=== PATIENT | male | born 1940 | race Caucasian/White ===

== ENCOUNTER 2016-08-08 14:59 | Inpatient (IN) | payer MEDICARE ==
[~2016-08-08] VITALS: Ht 175.3 cm; Wt 115.0 kg
[2016-08-08 15:01] VITALS: BP 181/88; PULSE 103; RESP 18; TEMP 98.9; O2SAT 97
[2016-08-08 15:12] VITALS: BP 192/95; PULSE 81; RESP 16; TEMP 97
[2016-08-08] MEDS ORDERED: SODIUM CHLOR 0.9% 1000 ML INJ 1,000 ML IV SCH (15:27)
[2016-08-08] MEDS ORDERED: SODIUM CHLORIDE 0.9% FLUSH 5 ML FLUSH IV FLUSH PRN (15:30)
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
[2016-08-08] MEDS ORDERED: AMLO5TAB2 PO (15:35)
[2016-08-08] MEDS ORDERED: SERT-132 PO (15:35)
[2016-08-08] MEDS ORDERED: METO25TA3 PO (15:35)
[2016-08-08] MEDS ORDERED: LISI20TA3 PO (15:35)
[2016-08-08] MEDS ORDERED: ATOR40TA16 PO (15:35)
[2016-08-08] MEDS ORDERED: ALBUAER3 INH (15:35)
[2016-08-08] MEDS ORDERED: UMEC1AER INH (15:36)
[2016-08-08 15:55] LABS: AUTOMATED NEUTROPHIL # 10.6 TH/MM3 (1.8-7.7); BASOPHIL % 0.2 % (0.0-2.0); EOSINOPHIL % 0.2 % (0.0-4.0); HEMATOCRIT 44.1 % (39.0-51.0); HEMO FLAGS DIFF FINAL; LYMPH % 9.5 % (9.0-44.0); LYMPHOCYTE # 1.2 TH/MM3 (1.0-4.8); MEAN CORPUSCULAR HEMOGLOBIN 29.7 PG (27.0-34.0); MEAN CORPUSCULAR HGB CONC 35.4 % (32.0-36.0); MONO % 7.7 % (0.0-8.0); NEUT % 82.4 % (16.0-70.0); PLATELET COUNT 251 TH/MM3 (150-450); RED BLOOD COUNT 5.25 MIL/MM3 (4.50-5.90); RED CELL DISTRIBUTION WIDTH 13.2 % (11.6-17.2); WHITE BLOOD COUNT 12.8 TH/MM3 (4.0-11.0)
[2016-08-08 16:05] LABS: APTT (PATIENT) 27.4 SEC (24.3-30.1)
--- NOTE | 2016-08-08 16:24 | RADRPT ---
EXAM DATE/TIME: 08/08/2016 15:59 [facility] COMPARISON: No previous studies available for comparison. INDICATIONS : Chest pain today. MEDICAL HISTORY : Chronic obstructive pulmonary disease. SURGICAL HISTORY : None. ENCOUNTER: Initial ACUITY: 1 day PAIN SCORE: 3/10 LOCATION: Bilateral chest FINDINGS: The heart is enlarged. Scattered atelectatic changes are noted bilaterally. Degenerative changes an d scoliosis of the thoracic spine are noted. CONCLUSION: 1. Cardiomegaly. 2. Scattered atelectatic changes bilaterally. 3. Degenerative changes and scoliosis of the thoracic spine. Valeriano Lemus MD on August 08, 2016 at 16:18 Board Certified Radiologist. This report was verified electronically.
[2016-08-08 16:36] VITALS: BP 170/79; PULSE 82; RESP 16; TEMP 98.1; O2SAT 96
[2016-08-08 16:41] LABS: ALKALINE PHOSPHATASE 92 U/L (45-117); ALT (GPT) 19 U/L (12-78); ANION GAP 9 MEQ/L (5-15); AST (GOT) 23 U/L (15-37); BICARBONATE 27.8 MEQ/L (21.0-32.0); BLOOD UREA NITROGEN 11 MG/DL (7-18); CHLORIDE 77 MEQ/L (98-107); CREATINE KINASE 293 U/L (39-308); GLOMERULAR FILTRATION RATE 55 ML/MIN (>89); POTASSIUM 3.7 MEQ/L (3.5-5.1); TOTAL BILIRUBIN ADULT 1.1 MG/DL (0.2-1.0)
[2016-08-08 16:44] LABS: SODIUM (NA) 114 MEQ/L (136-145)
--- NOTE | 2016-08-08 16:56 | RADRPT ---
EXAM DATE/TIME: 08/08/2016 16:36 [facility] COMPARISON: No previous studies available for comparison. INDICATIONS : Confused and difficulyt remembering RADIATION DOSE: 39.99 CTDIvol (mGy) MEDICAL HISTORY : Cardiovascular disease. Hypertension. Diabetes mellitus type 2. SURGICAL HISTORY : Cholecystectomy. ENCOUNTER: Initial ACUITY: 1 day PAIN SCALE: 0/10 LOCATION: Bilateral cranial TECHNIQUE: Multiple contiguous axial images were obtained of the head. Using automated exposure control and adj ustment of the mA and/or kV according to patient size, radiation dose was kept as low as reasonably a chievable to obtain optimal diagnostic quality images. DICOM format image data is available electro nically for review and comparison. FINDINGS: CEREBRUM: The ventricles are normal for age. No evidence of midline shift, mass lesion, hemorrhage or acute in farction. No extra-axial fluid collections are seen. POSTERIOR FOSSA: The cerebellum and brainstem are intact. The 4th ventricle is midline. The cerebellopontine angle i s unremarkable. EXTRACRANIAL: The visualized portion of the orbits is intact. SKULL: The calvaria is intact. No evidence of skull fracture. CONCLUSION: 1. No acute intracranial abnormality. Kai Velasquez MD on August 08, 2016 at 16:49 Board Certified Radiologist. This report was verified electronically.
[2016-08-08 17:36] LABS: BACTERIA, URINE RARE /hpf; BLOOD, URINE NEG (NEG); COMMENT (UR) CATH-CULTURE IND; CULTURE IF INDICATED CATH CULTURE IND; GLUCOSE,URINE 300 mg/dL (NEG); HYALINE CAST, URINE 3 /lpf (RARE); KETONE, URINE NEG (NEG); NITRITE,URINE NEG (NEG); PH, URINE 6.5 (5.0-8.5); URINE COLOR YELLOW (YELLW/STRAW)
[2016-08-08] MEDS ORDERED: ACETAMINOPHEN 325 MG TAB PO PRN (17:45)
[2016-08-08] MEDS ORDERED: LACTULOSE SYRUP 20 GM/30 ML CUP PO PRN (17:45)
[2016-08-08] MEDS ORDERED: SODIUM CHLORIDE 0.9% FLUSH 10 ML FLUSH IV FLUSH PRN (17:45)
[2016-08-08] MEDS ORDERED: BISACODYL 10 MG SUPP RECTAL PRN (17:45)
[2016-08-08] MEDS ORDERED: ONDANSETRON HCL 4 MG/2 ML VIAL IVP PRN (17:45)
[2016-08-08] MEDS ORDERED: DEXTROSE 50% IN WATER 50 ML VIAL(D50) IV PRN (17:45)
[2016-08-08] MEDS ORDERED: MAGNESIUM HYDROXIDE SUSP 30 ML CUP PO PRN (17:45)
[2016-08-08] MEDS ORDERED: ENALAPRILAT 1.25 MG/ML VIAL IV PUSH PRN (17:45)
[2016-08-08] MEDS ORDERED: GLUCAGON 1 MG/ML VIAL OTHER PRN (17:45)
[2016-08-08] MEDS ORDERED: SENNOSIDES 8.6 MG TAB PO PRN (17:45)
[2016-08-08] MEDS ORDERED: NALOXONE HCL 0.4 MG/ML AMP IV PRN (17:45)
[2016-08-08 20:00] VITALS: BP 137/87; PULSE 68; RESP 20; TEMP 96.8; O2SAT 94
[2016-08-08] MEDS: ATORVASTATIN 40 MG TAB PO SCH (20:16)
[2016-08-08] MEDS: HEPARIN SODIUM - SQ 10,000 UNITS/ML VIAL SQ SCH (20:16)
[2016-08-08] MEDS: INSULIN ASPART SUPPLEMENTAL SCALE SQ SCH (20:17)
[2016-08-08] MEDS: DOCUSATE SODIUM 50 MG/SENNA 8.6 MG TAB PO SCH (20:17)
[2016-08-08] MEDS: SODIUM CHLOR 0.9% 1000 ML INJ 1,000 ML IV SCH (20:18)
[2016-08-08] MEDS: SODIUM CHLORIDE 0.9% FLUSH 10 ML FLUSH IV FLUSH SCH (20:18)
--- NOTE | 2016-08-08 23:11 | HHI.HP ---
[facility] Primary Care Physician SHAHNAZ Marshall Admission Diagnosis severe hyponatremia, atypical chest pain, Diagnoses: Chief Complaint: altered mental status and atypical chest pain per ER physican report - patient is not sure why he is here Travel History International Travel<30 Days: No Contact w/Intl Traveler <30 Da: No Traveled to Known Affected Are: No History of Present Illness Written by Celeste Tony, acting as scribe for Dr. Brown on 08/08/16 at 23:11. Patient seen in room with no family at the bedside. He is not sure why he is here in the hospital. He denies chest pain, shortness of breath, n/v/d, black or red stool, dysuria, hematuria, falls, confusion, or dizziness. According to ER physician documentation, the patient was brought to the hospital for evaluation of altered mental status and atypical chest pain. The patient had been told to see a operations liaison by his primary care KNIFE EDGER secondary to a "silent [place]"but he presented to the hospital after experiencing chest pain the day before admission followed by altered mental status on the day of admission 08/08/2016. The family had provided much of the review of systems to the emergency room physician. . Review of Systems Except as stated in HPI: all other systems reviewed are Neg Past Family Social History Past Medical History Diabetes mellitus Hypertension - per med rec - takes multiple blood pressure medications Hearing problems COPD per EMR review Hypertriglyceridemia per EMR review Patient denies hypertension, CAD, CHF, atrial fibrillation, COPD, emphysema, asthma, SUMAN, liver or kidney problems, DVT, PE, CVA, seizures, thyroid problems , prostate problems, or cancers. . Past Surgical History Cholecystectomy . Reported Medications Reported Meds & Active Scripts Active Reported Anoro Ellipta Inh (Umeclidinium/Vilanterol) 62.5-25 Mcg/Act Aero 1 Puff INH DAILY Amlodipine (Amlodipine Besylate) 5 Mg Tab 5 Mg PO DAILY Proair Hfa 8.5 GM Inh (Albuterol Sulfate) 90 Mcg/Act Aer 1-2 Puff INH Q4-6H PRN 108 mcg/actuation Atorvastatin (Atorvastatin Calcium) 40 Mg Tab 40 Mg PO HS Metoprolol Tartrate 25 Mg Tab 25 Mg PO DAILY Sertraline (Sertraline HCl) 50 Mg Tab 50 Mg PO DAILY Lisinopril-Hctz 20-25 Mg Tab 1 Tab PO BID . Allergies: Coded Allergies: No Known Allergies (Unverified , 08/08/16) Active Ordered Medications Current Medications IV Flush 2 ml 2 ml UNSCH PRN IV FLUSH FLUSH AFTER USING IV ACCESS; Start at 15:30; Stop 08/08/16 at 18:20; Status DC Sodium Chloride 1,000 ml @ 125 mls/hr Q8H IV Last administered on 08/08/16 15 :56; Start 08/08/16 at 15:27; Stop 08/08/16 at 18:29; Status DC Sodium Chloride (NS 1000 ml Inj) 1,000 ml @ 125 mls/hr Q8H IV Last administered on 08/08/16 20:18; Start 08/08/16 at 19:00 Sodium Chloride (NS Flush) 2 ml UNSCH PRN IV FLUSH FLUSH AFTER USING IV ACCESS ; Start 08/08/16 at 17:45 Sodium Chloride (NS Flush) 2 ml BID IV FLUSH Last administered on 08/08/16 20: 18; Start 08/08/16 at 21:00 Ondansetron HCl (Zofran Inj) 4 mg Q6H PRN IVP NAUSEA OR VOMITING; Start at 17:45 Heparin Sodium (Porcine) (Heparin Inj) 5,000 units Q12H SQ Last administered on 08/08/16 20:16; Start 08/08/16 at 20:00 Acetaminophen (Tylenol) 650 mg Q6H PRN PO headache/fever/pain1-2; Start at 17:45 Naloxone HCl (Narcan Inj) 0.4 mg UNSCH PRN IV SEE LABEL COMMENTS; Start at 17:45 Senna/Docusate Sodium (Gretel-Colace) 1 tab BID PO ; Start 08/08/16 at 21:00 Magnesium Hydroxide (Milk Of Magnesia Liq) 30 ml Q12H PRN PO MILD - MODERATE CONSTIPATION; Start 08/08/16 at 17:45 Sennosides (Senokot) 17.2 mg Q12H PRN PO MODERATE - SEVERE CONSTIPATION; Start 08/08/16 at 17:45 Bisacodyl (Dulcolax Supp) 10 mg DAILY PRN RECTAL SEVERE CONSITIPATION; Start at 17:45 Lactulose (Lactulose Liq) 30 ml DAILY PRN PO SEVERE CONSITIPATION; Start at 17:45 Amlodipine Besylate (Norvasc) 5 mg DAILY PO ; Start 08/09/16 at 09:00; Status Future Hold Atorvastatin Calcium (Lipitor) 40 mg HS PO Last administered on 08/08/16t 20:16 ; Start 08/08/16 at 21:00 Metoprolol Tartrate (Lopressor) 25 mg DAILY PO ; Start 08/09/16 at 09:00; Status Future Hold Sertraline HCl (Zoloft) 50 mg DAILY PO ; Start 08/09/16 at 09:00 Enalaprilat (Vasotec Inj) 1.25 mg Q8H PRN IV PUSH SBP> OR = 180, DBP> OR = 100 ; Start 08/08/16 at 17:45 Dextrose (D50w (Vial) Inj) 50 ml UNSCH PRN IV HYPOGLYCEMIA-SEE COMMENTS; Start 08/08/16 at 17:45 Glucagon (Glucagon Inj) 1 mg UNSCH PRN OTHER HYPOGLYCEMIA-SEE COMMENTS; Start 08/08/16 at 17:45 Insulin Aspart (NovoLOG SUPPLEMENTAL SCALE) 1 ACHS SLIDING SCALE SQ ; Start at 21:00 . Family History Denies family medical history Social History Tobacco: "I smoked a hundred years ago when I was a teenager" Alcohol: states he no longer drinks Illicit Drugs: none . Physical Exam Vital Signs Vital Signs Date Time Temp Pulse Resp B/P Pulse Ox O2 Delivery O2 Flow Rate FiO2 08/08/16 20:00 96.8 68 20 137/87 94 08/08/16 16:36 98.1 82 16 170/79 96 08/08/16 15:17 16 97 08/08/16 15:12 97.0 81 16 192/95 08/08/16 15:01 98.9 103 18 181/88 97 Physical Exam GENERAL: This is a well-nourished, well-developed patient, in no apparent distress. SKIN: No rashes, ecchymoses or lesions. Cool and dry. HEAD: Atraumatic. Normocephalic. EYES: No scleral icterus. No injection or drainage. ENT: Nose without bleeding, purulent drainage. NECK: Trachea midline. No JVD or lymphadenopathy. CARDIOVASCULAR: Regular rate and rhythm without murmurs, gallops, or rubs. RESPIRATORY: Clear to auscultation. Breath sounds equal bilaterally. No wheezes , rales, or rhonchi. GASTROINTESTINAL: Abdomen large and protuberant, normal bowel sounds, abdomen is soft, non-tender. No guarding. MUSCULOSKELETAL: Extremities without clubbing, cyanosis, or edema. No calf tenderness. NEUROLOGICAL: Awake and alert with confusion. Motor and sensory grossly within normal limits. Normal speech. . Laboratory Laboratory Tests Test 08/08/16 08/08/16 15:30 17:15 White Blood Count 12.8 Red Blood Count 5.25 Hemoglobin 15.6 Hematocrit 44.1 Mean Corpuscular Volume 84.0 Mean Corpuscular Hemoglobin 29.7 Mean Corpuscular Hemoglobin 35.4 Concent Red Cell Distribution Width 13.2 Platelet Count 251 Mean Platelet Volume 9.1 Neutrophils (%) (Auto) 82.4 Lymphocytes (%) (Auto) 9.5 Monocytes (%) (Auto) 7.7 Eosinophils (%) (Auto) 0.2 Basophils (%) (Auto) 0.2 Neutrophils # (Auto) 10.6 Lymphocytes # (Auto) 1.2 Monocytes # (Auto) 1.0 Eosinophils # (Auto) 0.0 Basophils # (Auto) 0.0 CBC Comment DIFF FINAL Differential Comment Prothrombin Time 11.0 Prothromb Time International 1.0 Ratio Activated Partial 27.4 Thromboplast Time Sodium Level 114 Potassium Level 3.7 Chloride Level 77 Carbon Dioxide Level 27.8 Anion Gap 9 Blood Urea Nitrogen 11 Creatinine 1.27 Estimat Glomerular Filtration 55 Rate Random Glucose 193 Calcium Level 8.7 Total Bilirubin 1.1 Aspartate Amino Transf 23 (AST/SGOT) Alanine Aminotransferase 19 (ALT/SGPT) Alkaline Phosphatase 92 Total Creatine Kinase 293 Troponin I LESS THAN 0.02 Total Protein 7.5 Albumin 3.9 Thyroid Stimulating Hormone 1.530 3rd Gen Urine Color YELLOW Urine Turbidity CLEAR Urine pH 6.5 Urine Specific [place] 1.010 Urine Protein 30 Urine Glucose (UA) 300 Urine Ketones NEG Urine Occult Blood NEG Urine Nitrite NEG Urine Bilirubin NEG Urine Urobilinogen LESS THAN 2.0 Urine Leukocyte Esterase NEG Urine RBC 1 Urine WBC 2 Urine Bacteria RARE Urine Hyaline Casts 3 Microscopic Urinalysis Comment CATH-CULTURE IND Date/Time Procedure Status Source Growth 08/08/16 17:15 Urine Culture Received Urine Catheterized Urine Pending Result Diagram: 08/08/16 1530 08/08/16 1530 Imaging Last Impressions Head CT 08/08/16 1527 Signed Impressions: Service Date/Time: Monday, August 08, 2016 16:36 - CONCLUSION: 1. No acute intracranial abnormality. Kai Velasquez MD Chest X-Ray 08/08/16 1527 Signed Impressions: Service Date/Time: Monday, August 08, 2016 15:59 - CONCLUSION: 1. Cardiomegaly. 2. Scattered atelectatic changes bilaterally. 3. Degenerative changes and scoliosis of the thoracic spine. Valeriano Lemus MD . Assessment and Plan Assessment and Plan Altered mental status likely secondary to severe hyponatremia - Serial sodium levels - follow results - Cautious replacement of sodium with NS at 125 cc/hr with frequent sodium level monitoring to prevent osmotic demyelinization syndrome - Neuro checks q4h Atypical chest pain - Serial EKGs and cardiac enzymes - follow results to rule out ACS - Continuous cardiac telemetry to monitor for cardiac arrhythmias - Monitor vital signs every 4 hours Type 2 DM - Accu-Cheks before meals and at bedtime with low-dose sliding scale NovoLog coverage - Hypoglycemia protocol - Monitor trends and blood glucose levels and adjust treatments as indicated - 1800 kcal ADA conservative carb diet Hypertensive urgency - Enalapril 1.25 mg IV every 8 hours as needed for systolic blood pressure greater than or equal to 180 and/or diastolic blood pressure greater than or equal to 100 - Continue home antihypertensive medication regimen except for HCTZ (d/t hyponatremia) - Follow trends in blood pressures and adjust treatments as indicated DVT prophylaxis - Heparin 5000 units subq q12h . Discussed Condition With Patient and RN Physician Certification 2 Midnight Certification Type: Admission for Inpatient Services Order for Inpatient Services The services are ordered in accordance with Medicare regulations or non- Medicare payer requirements, as applicable. In the case of services not specified as inpatient-only, they are appropriately provided as inpatient services in accordance with the 2-midnight benchmark. Estimated LOS (days): 3 days is the estimated time the patient will need to remain in the hospital, assuming treatment plan goals are met and no additional complications. Post-Hospital Plan: Not yet determined Celeste Tony Aug 08, 2016 23:11
[2016-08-09] VITALS (8 sets, daily range): BP systolic 121–149; BP diastolic 68–74; PULSE 68–85; RESP 19–22; TEMP 96–98.9; O2SAT 94–96
[2016-08-09] MEDS: SODIUM CHLOR 0.9% 1000 ML INJ 1,000 ML IV SCH ×3 (02:41→20:47)
[2016-08-09 04:43] LABS: CREATINE KINASE 382 U/L (39-308)
[2016-08-09 04:47] LABS: SODIUM (NA) 119 MEQ/L (136-145)
[2016-08-09 05:04] LABS: CKMB 5.1 NG/ML (0.5-3.6)
[2016-08-09] MEDS: INSULIN ASPART SUPPLEMENTAL SCALE SQ SCH ×4 (06:15→20:50)
[2016-08-09 06:17] LABS: AUTOMATED NEUTROPHIL # 6.3 TH/MM3 (1.8-7.7); BASOPHIL % 0.4 % (0.0-2.0); EOSINOPHIL # 0.1 TH/MM3 (0-0.4); EOSINOPHIL % 0.9 % (0.0-4.0); HEMATOCRIT 39.8 % (39.0-51.0); HEMO FLAGS DIFF FINAL; LYMPH % 14.7 % (9.0-44.0); LYMPHOCYTE # 1.2 TH/MM3 (1.0-4.8); MEAN CELL VOLUME 84.4 FL (80.0-100.0); MEAN CORPUSCULAR HEMOGLOBIN 30.3 PG (27.0-34.0); MEAN CORPUSCULAR HGB CONC 35.9 % (32.0-36.0); MONO % 10.1 % (0.0-8.0); NEUT % 73.9 % (16.0-70.0); PLATELET COUNT 210 TH/MM3 (150-450); RED BLOOD COUNT 4.72 MIL/MM3 (4.50-5.90); RED CELL DISTRIBUTION WIDTH 13.2 % (11.6-17.2); WHITE BLOOD COUNT 8.5 TH/MM3 (4.0-11.0)
[2016-08-09 06:59] LABS: ALKALINE PHOSPHATASE 70 U/L (45-117); ALT (GPT) 17 U/L (12-78); ANION GAP 9 MEQ/L (5-15); AST (GOT) 22 U/L (15-37); BICARBONATE 25.4 MEQ/L (21.0-32.0); BLOOD UREA NITROGEN 9 MG/DL (7-18); CHLORIDE 86 MEQ/L (98-107); CREATINE KINASE 385 U/L (39-308); GLOMERULAR FILTRATION RATE 87 ML/MIN (>89); POTASSIUM 3.8 MEQ/L (3.5-5.1); TOTAL BILIRUBIN ADULT 1.1 MG/DL (0.2-1.0)
--- NOTE | 2016-08-09 07:54 | EKG ---
Date Performed: 08/08/2016 Time Performed: 20:43:18 PTAGE: 76 years EKG: ECTOPIC ATRIAL RHYTHM WITH OCCASIONAL SUPRAVENTRICULAR PREMATURE COMPLEXES NONSPECIFIC T-WA VE ABNORMALITY ABNORMAL RHYTHM ECG PREVIOUS TRACING : 08/08/2016 15.18 DOCTOR: Gregory Sinclair Interpretating Date/Time 08/09/2016 07:50:38
--- NOTE | 2016-08-09 08:04 | EKG ---
Date Performed: 08/08/2016 Time Performed: 15:18:19 PTAGE: 76 years EKG: ATRIAL FIBRILLATION NONSPECIFIC T-WAVE ABNORMALITY ABNORMAL RHYTHM ECG INTERPRETATION BASED ON A DEFAULT AGE OF 40 YEARS NO PREVIOUS TRACING DOCTOR: Gregory Sinclair Interpretating Date/Time 08/09/2016 07:58:07
[2016-08-09 08:06] LABS: SODIUM (NA) 120 MEQ/L (136-145)
[2016-08-09 08:39] LABS: CKMB 5.2 NG/ML (0.5-3.6)
[2016-08-09] MEDS: HEPARIN SODIUM - SQ 10,000 UNITS/ML VIAL SQ SCH ×2 (08:42→20:48)
[2016-08-09] MEDS: LISINOPRIL 20 MG TAB PO SCH ×2 (08:48→20:47)
[2016-08-09] MEDS: DOCUSATE SODIUM 50 MG/SENNA 8.6 MG TAB PO SCH ×2 (08:50→20:47)
[2016-08-09] MEDS ORDERED: METOPROLOL TARTRATE 25 MG TAB PO SCH (09:00)
[2016-08-09] MEDS ORDERED: amLODIPine BESYLATE 5 MG TAB PO SCH (09:00)
[2016-08-09] MEDS: SERTRALINE HCL 50 MG TAB PO SCH (10:01)
[2016-08-09] MEDS: SODIUM CHLORIDE 0.9% FLUSH 10 ML FLUSH IV FLUSH SCH ×2 (10:01→20:48)
[2016-08-09] MEDS: UMECLIDINIUM 62.5 MCG/VILANTEROL 25 MCG INHALER INH SCH (10:20)
--- NOTE | 2016-08-09 13:32 | HHI.PR ---
Subjective Remarks Follow-up hyponatremia, altered mental status. Patient's family at bedside states that he is still somewhat confused. He denies any complaints at this time. Denies chest pain, dyspnea, nausea, vomiting, diarrhea, constipation. Objective Vitals Vital Signs Date Time Temp Pulse Resp B/P Pulse Ox O2 Delivery O2 Flow Rate FiO2 08/09/16 11:50 97.8 80 20 135/69 94 08/09/16 09:00 75 08/09/16 07:35 96.4 76 20 121/68 95 08/09/16 04:00 96.3 68 20 121/71 96 08/09/16 00:00 96.0 77 22 149/74 94 08/08/16 20:00 96.8 68 20 137/87 94 08/08/16 16:36 98.1 82 16 170/79 96 08/08/16 15:17 16 97 08/08/16 15:12 97.0 81 16 192/95 08/08/16 15:01 98.9 103 18 181/88 97 I/O 08/08/16 08/08/16 08/08/16 08/09/16 08/09/16 08/09/16 07:00 15:00 23:00 07:00 15:00 23:00 Intake Total 792 ml 1000 ml Balance 792 ml 1000 ml Intake Oral 480 ml IV Total 312 ml 1000 ml # Voids 1 6 Result Diagram: 08/09/16 0602 08/09/16 1048 Imaging Last Impressions Head CT 08/08/16 1527 Signed Impressions: Service Date/Time: Monday, August 08, 2016 16:36 - CONCLUSION: 1. No acute intracranial abnormality. Kai Velasquez MD Chest X-Ray 08/08/16 1527 Signed Impressions: Service Date/Time: Monday, August 08, 2016 15:59 - CONCLUSION: 1. Cardiomegaly. 2. Scattered atelectatic changes bilaterally. 3. Degenerative changes and scoliosis of the thoracic spine. Valeriano Lemus MD Objective Remarks General: Obese elderly male in no acute distress. Heart: Regular rate and rhythm. No murmur. Lungs: Clear to auscultation bilaterally. No wheezes, rales, or rhonchi. Breathing is nonlabored. Abdomen: Soft, nontender, nondistended. Extremities: No lower extremity edema. Psych: Alert and oriented. Procedures None Urinary Catheter: No Vascular Central Line Catheter: No A/P Problem List: (1) Hyponatremia ICD Code: E87.1 Status: Acute (2) Hypertension ICD Code: I10 Status: Chronic (3) Encephalopathy ICD Code: G93.40 Status: Acute (4) Diabetes mellitus ICD Code: E11.9 Status: Chronic Assessment and Plan 1. Severe hyponatremia: Continue sodium replacement with normal saline. Sodium level had been improving, but has decreased this afternoon. He shouldn't apparently has been drinking a lot of water. We'll start fluid restriction. Consult nephrology. 2. Atypical chest pain: Troponin is negative. Continue telemetry monitoring. 3. Diabetes mellitus, type II: Monitor Accu-Cheks and cover with sliding scale insulin. Diabetic diet. 4. Hypertension: Patient presented with significantly elevated blood pressure. Continue Vasotec as needed. Continue home antihypertensive regimen with the exception of HCTZ, which was discontinued secondary to hyponatremia. Blood pressure control is much better today. 5. Follow-up the: Secondary to hyponatremia. Patient's family states that he is still confused. 6. DVT prophylaxis: Heparin. Problem Qualifiers (1) Diabetes mellitus: Sky Mari MD Aug 09, 2016 13:32
--- NOTE | 2016-08-09 15:40 | EKG ---
Date Performed: 08/09/2016 Time Performed: 03:56:22 PTAGE: 76 years EKG: Sinus rhythm with PAC(s). Poor R wave progression - probable normal variant Lateral T wave changes are nonspecifi c Borderline ECG PREVIOUS TRACING : 08/08/2016 20.43 DOCTOR: Gregory Sinclair Interpretating Date/Time 08/09/2016 15:38:52
[2016-08-09 16:16] LABS: HEMOGLOBIN A1a 0.8 %; HEMOGLOBIN A1b 1.9 %; HEMOGLOBIN Ao 81.9 %; HEMOGLOBIN LA1C 1.9 %
--- NOTE | 2016-08-09 18:00 | PD.CONS ---
HPI Service Nephrology Consult Requested By Dr. Mari Reason for Consult Hyponatremia Primary Care Physician SHAHNAZ Marshall History of Present Illness Patient is 76-year-old the white male with history of diabetes, coronary artery disease, coronary to the he had a recent coronary event, he has been drinking heavily and about a week ago has 18 beers, patient hardly recalls this and has memory issues, he was told to drinking however lately he has been confused and forgetful. Patient is an with sodium of 120 and then dropped again to 117. He is answering questions however he is forgetful. Review of Systems Constitutional: COMPLAINS OF: Fatigue Musculoskeletal: COMPLAINS OF: Joint pain Neurologic: COMPLAINS OF: Localized weakness (memory issues) Psychiatric: COMPLAINS OF: Confusion Past Family Social History Allergies: Coded Allergies: No Known Allergies (Unverified , 08/08/16) Past Medical History Diabetes Hypertension Coronary artery disease Alcoholism COPD Past Surgical History Right leg surgery Cholecystectomy Reported Medications Reported Meds & Active Scripts Active Reported Anoro Ellipta Inh (Umeclidinium/Vilanterol) 62.5-25 Mcg/Act Aero 1 Puff INH DAILY Amlodipine (Amlodipine Besylate) 5 Mg Tab 5 Mg PO DAILY Proair Hfa 8.5 GM Inh (Albuterol Sulfate) 90 Mcg/Act Aer 1-2 Puff INH Q4-6H PRN 108 mcg/actuation Atorvastatin (Atorvastatin Calcium) 40 Mg Tab 40 Mg PO HS Metoprolol Tartrate 25 Mg Tab 25 Mg PO DAILY Sertraline (Sertraline HCl) 50 Mg Tab 50 Mg PO DAILY Lisinopril-Hctz 20-25 Mg Tab 1 Tab PO BID Active Ordered Medications Current Medications Medications (Trade) Dose Ordered Sig/Stephenie Route Start Time Stop Time Status Last Admin (NS 1000 ml Inj) 1,000 ml @ 125 mls/hr Q8H IV 08/08/16 19:00 08/09/16 11:00 (NS Flush) 2 ml UNSCH PRN IV FLUSH 08/08/16 17:45 (NS Flush) 2 ml BID IV FLUSH 08/08/16 21:00 08/09/16 10:01 (Zofran Inj) 4 mg Q6H PRN IVP 08/08/16 17:45 (Heparin Inj) 5,000 units Q12H SQ 08/08/16 20:00 08/09/16 08:42 (Tylenol) 650 mg Q6H PRN PO 08/08/16 17:45 (Narcan Inj) 0.4 mg UNSCH PRN IV 08/08/16 17:45 (Gretel-Colace) 1 tab BID PO 08/08/16 21:00 08/09/16 08:50 (Milk Of Magnesia Liq) 30 ml Q12H PRN PO 08/08/16 17:45 (Senokot) 17.2 mg Q12H PRN PO 08/08/16 17:45 (Dulcolax Supp) 10 mg DAILY PRN RECTAL 08/08/16 17:45 (Lactulose Liq) 30 ml DAILY PRN PO 08/08/16 17:45 (Norvasc) 5 mg DAILY PO 08/09/16 09:00 Hold (Lipitor) 40 mg HS PO 08/08/16 21:00 08/08/16 20:16 (Lopressor) 25 mg DAILY PO 08/09/16 09:00 Hold (Zoloft) 50 mg DAILY PO 08/09/16 09:00 08/09/16 10:01 (Vasotec Inj) 1.25 mg Q8H PRN IV PUSH 08/08/16 17:45 (D50w (Vial) Inj) 50 ml UNSCH PRN IV 08/08/16 17:45 (Glucagon Inj) 1 mg UNSCH PRN OTHER 08/08/16 17:45 (Prinivil) 20 mg Q12HR PO 08/09/16 09:00 08/09/16 08:48 Family History Noncontributory Social History History of smoking quit several years ago He used to drink beer heavily until 1 week ago as stated he drinks beer up to 18 per day about a week ago according to the which patient completely forgot Physical Exam Vital Signs Vital Signs Date Time Temp Pulse Resp B/P Pulse Ox O2 Delivery O2 Flow Rate FiO2 08/09/16 16:12 98.5 78 19 132/73 95 08/09/16 11:50 97.8 80 20 135/69 94 08/09/16 09:00 75 08/09/16 07:35 96.4 76 20 121/68 95 08/09/16 04:00 96.3 68 20 121/71 96 08/09/16 00:00 96.0 77 22 149/74 94 08/08/16 20:00 96.8 68 20 137/87 94 Physical Exam GENERAL: Well-nourished, well-developed patient. SKIN: Warm and dry. HEAD: Normocephalic. EYES: No scleral icterus. No injection or drainage. NECK: Supple, trachea midline. No JVD or lymphadenopathy. CARDIOVASCULAR: Regular rate and rhythm without murmurs, gallops, or rubs. RESPIRATORY: Breath sounds equal bilaterally. No accessory muscle use. GASTROINTESTINAL: Abdomen soft, non-tender,distended. EXTREMITIES: No cyanosis, or edema. NEUROLOGICAL: Awake, alert, and oriented x 3. Non-focal. Laboratory Laboratory Tests Test 08/08/16 08/09/16 08/09/16 08/09/16 22:18 03:33 06:02 10:48 Hemoglobin A1c 8.4 Sodium Level 119 120 117 Total Creatine Kinase 382 385 Creatine Kinase MB 5.1 5.2 Creatine Kinase MB % 1.3 1.4 Troponin I LESS THAN 0.02 LESS THAN 0.02 White Blood Count 8.5 Red Blood Count 4.72 Hemoglobin 14.3 Hematocrit 39.8 Mean Corpuscular Volume 84.4 Mean Corpuscular Hemoglobin 30.3 Mean Corpuscular Hemoglobin 35.9 Concent Red Cell Distribution Width 13.2 Platelet Count 210 Mean Platelet Volume 8.8 Neutrophils (%) (Auto) 73.9 Lymphocytes (%) (Auto) 14.7 Monocytes (%) (Auto) 10.1 Eosinophils (%) (Auto) 0.9 Basophils (%) (Auto) 0.4 Neutrophils # (Auto) 6.3 Lymphocytes # (Auto) 1.2 Monocytes # (Auto) 0.9 Eosinophils # (Auto) 0.1 Basophils # (Auto) 0.0 CBC Comment DIFF FINAL Differential Comment Potassium Level 3.8 Chloride Level 86 Carbon Dioxide Level 25.4 Anion Gap 9 Blood Urea Nitrogen 9 Creatinine 0.86 Estimat Glomerular Filtration 87 Rate Random Glucose 96 Calcium Level 7.8 Total Bilirubin 1.1 Aspartate Amino Transf 22 (AST/SGOT) Alanine Aminotransferase 17 (ALT/SGPT) Alkaline Phosphatase 70 Total Protein 6.1 Albumin 2.9 Date/Time Procedure Status Source Growth 08/08/16 17:15 Urine Culture - Preliminary Resulted Urine Catheterized Urine NO GROWTH IN 24 HOURS. 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, results from an adequate solute intake and drinking heavily, kidney is dependent on solute intake, if he did take more water than solutes then water intoxication can result which suppresses your antidiuretic hormone and your urine osmolality drops, due to inadequate solute intake and tries to compensated by excreting more electrolytes, urine osmolality usually is less than 100 I will order urine sodium and osmolality Treatment is conservative approach and adequate solute replacement with water restriction, apparently patient is just placed on water restrictions We don't have urine sodium and osmolality at this point and would like to get this before further treatment options can be explored, meanwhile he is on normal saline however we should be cautious and replacement will be adjusted to 100 cc an hour I will obtain Liver US as Bilirubin mildly elevated, given history of alcoholism need to rule out cirrhosis, check NH4 level (2) Diabetes mellitus Plan: Continue to monitor (3) Hypertension Plan: Stable Problem Qualifiers (1) Diabetes mellitus: Kiah Gonzalez MD Aug 09, 2016 18:00
[2016-08-09] MEDS: ATORVASTATIN 40 MG TAB PO SCH (20:47)
[2016-08-10] VITALS (7 sets, daily range): BP systolic 140–193; BP diastolic 76–94; PULSE 76–93; RESP 18–20; TEMP 96.4–97.5; O2SAT 92–99
[2016-08-10] MEDS: SODIUM CHLOR 0.9% 1000 ML INJ 1,000 ML IV SCH ×3 (05:53→20:23)
[2016-08-10] MEDS: INSULIN ASPART SUPPLEMENTAL SCALE SQ SCH ×4 (06:13→20:25)
[2016-08-10] MEDS: HEPARIN SODIUM - SQ 10,000 UNITS/ML VIAL SQ SCH ×2 (08:00→20:23)
[2016-08-10 09:10] LABS: BICARBONATE 24.1 MEQ/L (21.0-32.0); MAGNESIUM 1.8 MG/DL (1.5-2.5); POTASSIUM 3.6 MEQ/L (3.5-5.1)
[2016-08-10] MEDS: SODIUM CHLORIDE 0.9% FLUSH 10 ML FLUSH IV FLUSH SCH ×2 (09:14→20:24)
[2016-08-10] MEDS: UMECLIDINIUM 62.5 MCG/VILANTEROL 25 MCG INHALER INH SCH (09:15)
[2016-08-10] MEDS: SERTRALINE HCL 50 MG TAB PO SCH (09:15)
[2016-08-10] MEDS: LISINOPRIL 20 MG TAB PO SCH ×2 (09:15→20:23)
[2016-08-10] MEDS: DOCUSATE SODIUM 50 MG/SENNA 8.6 MG TAB PO SCH ×2 (09:15→20:23)
--- NOTE | 2016-08-10 09:58 | RADRPT ---
EXAM DATE/TIME: 08/10/2016 08:54 [facility] COMPARISON: No previous studies available for comparison. INDICATIONS : Cirrhosis. MEDICAL HISTORY : Myocardial infarction. Hypercholesterolemia. Hypertension. Confusion. Weakness. Hyperlipidemia. COPD. Diabetes. SURGICAL HISTORY : Cholecystectomy. Right leg. ENCOUNTER: Initial ACUITY: 1 day PAIN SCORE: 0/10 LOCATION: Bilateral upper quadrant MEASUREMENTS: LIVER: 13.1 cm length COMMON DUCT: 6 mm RIGHT KIDNEY: 10.3 x 6.2 x 6.0 cm SPLEEN: 11.3 cm length FINDINGS: LIVER: Normal echotexture without focal lesion or ductal dilatation. COMMON DUCT: No intraluminal mass or stone visualized. GALLBLADDER: Surgically absent PANCREAS: Visualized portions grossly unremarkable RIGHT KIDNEY: No hydronephrosis, stone or mass. SPLEEN: No focal lesion. CONCLUSION: Unremarkable sonographic appearance of the right upper quadrant Dario Parks MD on August 10, 2016 at 9:53 Board Certified Radiologist. This report was verified electronically.
[2016-08-10 10:10] LABS: CKMB 12.5 NG/ML (0.5-3.6)
[2016-08-10 10:33] LABS: C. DIFF EPI 027 PRESUMPTIVE NEGATIVE (NEGATIVE); C. DIFF TOXIN PCR NEGATIVE (NEGATIVE)
[2016-08-10] MEDS ORDERED: TOLVAPTAN 15 MG TAB PO ONE (11:00)
[2016-08-10] MEDS ORDERED: THIAMINE HCL 100 MG TAB PO ONE (11:00)
[2016-08-10] MEDS: SODIUM CHLORIDE 1 GRAM TAB PO SCH ×2 (12:00→18:18)
--- NOTE | 2016-08-10 13:19 | HHI.PR ---
Subjective Remarks Follow-up hyponatremia, encephalopathy. Patient remains confused. He became agitated and has pulled out multiple IVs. He removed his telemetry. He required soft restraints overnight. Objective Vitals Vital Signs Date Time Temp Pulse Resp B/P Pulse Ox O2 Delivery O2 Flow Rate FiO2 08/10/16 12:00 91 18 143/77 97 08/10/16 08:00 86 18 193/94 99 08/10/16 04:00 96.4 84 20 165/78 96 08/10/16 00:00 97.4 93 20 159/76 92 08/09/16 20:04 85 08/09/16 20:00 98.9 83 20 142/72 95 08/09/16 16:12 98.5 78 19 132/73 95 I/O 08/09/16 08/09/16 08/09/16 08/10/16 08/10/16 08/10/16 07:00 15:00 23:00 07:00 15:00 23:00 Intake Total 1000 ml 380 ml 1028 ml 1080 ml 200 ml Output Total 400 ml Balance 1000 ml 380 ml 628 ml 1080 ml 200 ml Intake Oral 120 ml 100 ml 200 ml IV Total 1000 ml 380 ml 908 ml 980 ml Output Urine Total 400 ml # Voids 6 6 2 # Bowel Movements 2 2 Result Diagram: 08/09/16 0602 08/10/16 0819 Imaging Last Impressions Liver Ultrasound 08/10/16 0000 Signed Impressions: Service Date/Time: Wednesday, August 10, 2016 08:54 - CONCLUSION: Unremarkable sonographic appearance of the right upper quadrant Dario Parks MD Head CT 08/08/16 1527 Signed Impressions: Service Date/Time: Monday, August 08, 2016 16:36 - CONCLUSION: 1. No acute intracranial abnormality. Kai Velasquez MD Chest X-Ray 08/08/16 1527 Signed Impressions: Service Date/Time: Monday, August 08, 2016 15:59 - CONCLUSION: 1. Cardiomegaly. 2. Scattered atelectatic changes bilaterally. 3. Degenerative changes and scoliosis of the thoracic spine. Valeriano Lemus MD Objective Remarks General: Obese elderly male in no acute distress. Heart: Regular rate and rhythm. No murmur. Lungs: Clear to auscultation bilaterally. No wheezes, rales, or rhonchi. Breathing is nonlabored. Abdomen: Soft, obese, nontender, nondistended. Extremities: No lower extremity edema. Psych: Alert, confused. States that the year is 2000 and the month is September. Procedures None Urinary Catheter: No Vascular Central Line Catheter: No A/P Problem List: (1) Hyponatremia ICD Code: E87.1 Status: Acute (2) Hypertension ICD Code: I10 Status: Chronic (3) Encephalopathy ICD Code: G93.40 Status: Acute (4) Diabetes mellitus ICD Code: E11.9 Status: Chronic Assessment and Plan 1. Severe hyponatremia: Continue sodium replacement with normal saline. Sodium level had been improving, but has decreased this afternoon. The patient apparently has been drinking a lot of water. We'll start fluid restriction. He also has history of significant intake of beer. Low-sodium likely secondary to beer potomania. Appreciate nephrology recommendations. 2. Atypical chest pain: Troponin is negative. Continue telemetry monitoring. 3. Diabetes mellitus, type II: Monitor Accu-Cheks and cover with sliding scale insulin. Diabetic diet. 4. Hypertension: Patient presented with significantly elevated blood pressure. Continue Vasotec as needed. Continue home antihypertensive regimen with the exception of HCTZ, which was discontinued secondary to hyponatremia. Blood pressure control is much better today. 5. Encephalopathy: Secondary to hyponatremia. Patient's family states that he is still confused. 6. DVT prophylaxis: Heparin. Problem Qualifiers (1) Diabetes mellitus: Sky Mari MD Aug 10, 2016 13:19
--- NOTE | 2016-08-10 17:45 | HHI.NPPN ---
Subjective History of Present Illness Patient remains confused, his sodium is still 117, he was noncompliant and trying to drink lots of water, pulled his IV twice Review of Systems General Constitutional: Fatigue Objective Data Data 08/09/16 08/10/16 19:00 07:00 Intake Total 1046 ml 1442 ml Output Total 400 ml Balance 1046 ml 1042 ml Intake Oral 220 ml IV Total 1046 ml 1222 ml Output Urine Total 400 ml # Voids 4 4 # Bowel Movements 1 3 Vital Signs Date Time Temp Pulse Resp B/P Pulse Ox O2 Delivery O2 Flow Rate FiO2 08/10/16 16:00 97.4 76 18 140/77 97 08/10/16 12:00 91 18 143/77 97 08/10/16 08:00 86 18 193/94 99 08/10/16 04:00 96.4 84 20 165/78 96 08/10/16 00:00 97.4 93 20 159/76 92 08/09/16 20:04 85 08/09/16 20:00 98.9 83 20 142/72 95 -: 08/09/16 0602 08/10/16 0819 Microbiology 08/10/16 - Final, Complete Salmonella Species Physical Exam General Appearance: Well Developed Eyes Eye Exam: Pupils Equal Neck Neck Exam: Neck Supple Pulmonary Resp Exam: Clear Bilaterally, Breath Sounds Equal Gastrointestinal/Abdomen GI Exam: Soft, Non-Tender, Bowel Sounds Present Integumentary Skin Exam: Clear Extremeties Extremities Exam: No Edema Neurologic Neuro Exam: Alert Assessment/Plan Problem List: (1) Hyponatremia Plan: He had been drinking beer heavily, this leads to an entity called beer Potomania, results from an adequate solute intake and drinking heavily, Since sodium did not improve I gave him Samsca one dose 15 mg Placed him on salt tablets as he is not getting IV fluids as ordered and pulled his IV lines He remains confused and I added thiamine due to history of alcoholism (2) Diabetes mellitus Plan: Continue to monitor (3) Hypertension Plan: Stable Problem Qualifiers (1) Diabetes mellitus: Kiah Gonzalez MD Aug 10, 2016 17:45
[2016-08-10] MEDS: ATORVASTATIN 40 MG TAB PO SCH (20:23)
[2016-08-11] VITALS (7 sets, daily range): BP systolic 119–161; BP diastolic 63–85; PULSE 76–90; RESP 16–20; TEMP 97.5–98.1; O2SAT 95–99
[2016-08-11] MEDS: SODIUM CHLOR 0.9% 1000 ML INJ 1,000 ML IV SCH ×3 (03:48→20:49)
[2016-08-11] MEDS: INSULIN ASPART SUPPLEMENTAL SCALE SQ SCH ×4 (04:49→22:40)
[2016-08-11 08:00] LABS: BICARBONATE 29.4 MEQ/L (21.0-32.0); POTASSIUM 4.3 MEQ/L (3.5-5.1)
[2016-08-11 08:18] LABS: CKMB 12.5 NG/ML (0.5-3.6)
[2016-08-11] MEDS: THIAMINE HCL 100 MG TAB PO SCH (08:23)
[2016-08-11] MEDS: LISINOPRIL 20 MG TAB PO SCH ×2 (08:24→20:50)
[2016-08-11] MEDS: HEPARIN SODIUM - SQ 10,000 UNITS/ML VIAL SQ SCH ×2 (08:24→20:00)
[2016-08-11] MEDS: DOCUSATE SODIUM 50 MG/SENNA 8.6 MG TAB PO SCH ×2 (08:24→20:55)
[2016-08-11] MEDS: SERTRALINE HCL 50 MG TAB PO SCH (08:24)
[2016-08-11] MEDS: SODIUM CHLORIDE 0.9% FLUSH 10 ML FLUSH IV FLUSH SCH ×2 (08:29→20:49)
[2016-08-11] MEDS: UMECLIDINIUM 62.5 MCG/VILANTEROL 25 MCG INHALER INH SCH (09:00)
--- NOTE | 2016-08-11 11:55 | HHI.PR ---
Subjective Remarks Follow-up hyponatremia, encephalopathy. The patient states that he is feeling better today. He seems a little less confused. Denies chest pain, dyspnea, nausea, vomiting. States that he had diarrhea yesterday, but no loose stools today. Objective Vitals Vital Signs Date Time Temp Pulse Resp B/P Pulse Ox O2 Delivery O2 Flow Rate FiO2 08/11/16 07:42 97.5 86 20 161/80 98 08/11/16 04:24 97.9 90 17 145/82 95 08/11/16 00:11 97.6 82 17 157/85 96 08/10/16 21:35 79 08/10/16 20:15 97.5 77 18 140/79 95 08/10/16 16:00 97.4 76 18 140/77 97 08/10/16 12:00 91 18 143/77 97 I/O 08/10/16 08/10/16 08/10/16 08/11/16 08/11/16 08/11/16 07:00 15:00 23:00 07:00 15:00 23:00 Intake Total 1080 ml 200 ml 1116 ml Balance 1080 ml 200 ml 1116 ml Intake Oral 100 ml 200 ml 120 ml IV Total 980 ml 996 ml # Voids 2 5 # Bowel Movements 2 Result Diagram: 08/09/16 0602 08/11/16 0616 Imaging Last Impressions Liver Ultrasound 08/10/16 0000 Signed Impressions: Service Date/Time: Wednesday, August 10, 2016 08:54 - CONCLUSION: Unremarkable sonographic appearance of the right upper quadrant Dario Parks MD Head CT 08/08/16 1527 Signed Impressions: Service Date/Time: Monday, August 08, 2016 16:36 - CONCLUSION: 1. No acute intracranial abnormality. Kai Velasquez MD Chest X-Ray 08/08/16 1527 Signed Impressions: Service Date/Time: Monday, August 08, 2016 15:59 - CONCLUSION: 1. Cardiomegaly. 2. Scattered atelectatic changes bilaterally. 3. Degenerative changes and scoliosis of the thoracic spine. Valeriano Lemus MD Objective Remarks General: Obese elderly male in no acute distress. Sitting up in a chair. Heart: Regular rate and rhythm. No murmur. Lungs: Clear to auscultation bilaterally. No wheezes, rales, or rhonchi. Breathing is nonlabored. Abdomen: Soft, obese, nontender, nondistended. Extremities: No lower extremity edema. Psych: Alert, somewhat confused. States that the year is 2000 and the month is June. He is oriented to city and state. Procedures None Urinary Catheter: No Vascular Central Line Catheter: No A/P Problem List: (1) Hyponatremia ICD Code: E87.1 Status: Acute (2) Hypertension ICD Code: I10 Status: Chronic (3) Encephalopathy ICD Code: G93.40 Status: Acute (4) Diabetes mellitus ICD Code: E11.9 Status: Chronic Assessment and Plan 1. Severe hyponatremia: Continue sodium replacement with normal saline. The patient apparently has been drinking a lot of water. Continue fluid restriction. He also has history of significant intake of beer. Low sodium is likely secondary to beer potomania. Appreciate nephrology recommendations. Sodium is improving. 2. Atypical chest pain: Troponin is negative. Continue telemetry monitoring. 3. Diabetes mellitus, type II: Monitor Accu-Cheks and cover with sliding scale insulin. Diabetic diet. 4. Hypertension: Patient presented with significantly elevated blood pressure. Continue Vasotec as needed. Continue home antihypertensive regimen with the exception of HCTZ, which was discontinued secondary to hyponatremia. 5. Encephalopathy: Secondary to hyponatremia. 6. DVT prophylaxis: Heparin. Problem Qualifiers (1) Diabetes mellitus: Sky Mari MD Aug 11, 2016 11:54
--- NOTE | 2016-08-11 16:26 | HHI.NPPN ---
Subjective History of Present Illness Patient remains confused, his sodium is still 117, he was noncompliant and trying to drink lots of water, pulled his IV twice Additional Remarks Feeling much better today, less confusion per family Review of Systems General Constitutional: Fatigue Objective Data Data 08/10/16 08/11/16 19:00 07:00 Intake Total 200 ml 1116 ml Balance 200 ml 1116 ml Intake Oral 200 ml 120 ml IV Total 996 ml # Voids 5 Vital Signs Date Time Temp Pulse Resp B/P Pulse Ox O2 Delivery O2 Flow Rate FiO2 08/11/16 16:06 97.5 78 20 135/75 96 08/11/16 12:14 98.1 77 20 119/63 99 08/11/16 07:42 97.5 86 20 161/80 98 08/11/16 04:24 97.9 90 17 145/82 95 08/11/16 00:11 97.6 82 17 157/85 96 08/10/16 21:35 79 08/10/16 20:15 97.5 77 18 140/79 95 -: 08/09/16 0602 08/11/16 1308 Physical Exam General Appearance: Well Developed Eyes Eye Exam: Pupils Equal Neck Neck Exam: Neck Supple Pulmonary Resp Exam: Clear Bilaterally, Breath Sounds Equal Cardiology CV Exam: Regular Gastrointestinal/Abdomen GI Exam: Soft, Non-Tender, Bowel Sounds Present Integumentary Skin Exam: Clear Extremeties Extremities Exam: No Edema Neurologic Neuro Exam: Alert, Awake Assessment/Plan Problem List: (1) Hyponatremia Plan: He has been drinking beer heavily, this leads to an entity called beer Potomania, results from an adequate solute intake and drinking heavily, kidney is dependent on solute intake, if he did take more water than solutes then water intoxication can result which suppresses your antidiuretic hormone and your urine osmolality drops, due to inadequate solute intake and tries to compensated by excreting more electrolytes, urine osmolality usually is less than 100 Treatment is conservative approach and adequate solute replacement with water restriction, apparently patient is just placed on water restrictions Na improved significantly after dose of Tolvaptan given x 1, Na stable at 132 today. Can continue NS for now. Advised patient to limit etoh intake. Otherwise confusion improved with correction of hyponatremia. If sodium stable tomorrow, may consider for discharge. Abdominal ultrasound, ammonia levels unremarkable. (2) Diabetes mellitus Plan: Continue to monitor (3) Hypertension Plan: Stable Problem Qualifiers (1) Diabetes mellitus: Aaron Malik MD Aug 11, 2016 16:26
[2016-08-11] MEDS: ATORVASTATIN 40 MG TAB PO SCH (20:50)
[2016-08-12] VITALS (8 sets, daily range): BP systolic 129–153; BP diastolic 62–77; PULSE 75–88; RESP 17–20; TEMP 95.9–97.8; O2SAT 93–97
[2016-08-12] MEDS: SODIUM CHLOR 0.9% 1000 ML INJ 1,000 ML IV SCH ×3 (03:49→16:23)
[2016-08-12] MEDS: INSULIN ASPART SUPPLEMENTAL SCALE SQ SCH ×4 (06:27→22:37)
[2016-08-12] MEDS: DOCUSATE SODIUM 50 MG/SENNA 8.6 MG TAB PO SCH ×2 (09:00→21:00)
[2016-08-12] MEDS: UMECLIDINIUM 62.5 MCG/VILANTEROL 25 MCG INHALER INH SCH (09:00)
[2016-08-12] MEDS: SODIUM CHLORIDE 0.9% FLUSH 10 ML FLUSH IV FLUSH SCH ×2 (09:00→21:10)
[2016-08-12] MEDS: THIAMINE HCL 100 MG TAB PO SCH (09:07)
[2016-08-12] MEDS: SERTRALINE HCL 50 MG TAB PO SCH (09:07)
[2016-08-12] MEDS: LISINOPRIL 20 MG TAB PO SCH ×2 (09:07→21:06)
[2016-08-12] MEDS: HEPARIN SODIUM - SQ 10,000 UNITS/ML VIAL SQ SCH ×2 (09:07→21:07)
[2016-08-12 10:17] LABS: BICARBONATE 28.2 MEQ/L (21.0-32.0); POTASSIUM 4.1 MEQ/L (3.5-5.1)
--- NOTE | 2016-08-12 10:59 | HHI.PR ---
Subjective Remarks Follow-up hyponatremia, encephalopathy. Patient has been much less confused per nursing. He has no complaints at this time. Denies pain. Objective Vitals Vital Signs Date Time Temp Pulse Resp B/P Pulse Ox O2 Delivery O2 Flow Rate FiO2 08/12/16 09:32 75 08/12/16 08:04 96.5 87 20 139/76 96 08/12/16 04:21 97.8 88 17 130/62 96 08/12/16 00:07 97.6 88 17 134/73 96 08/11/16 21:00 88 08/11/16 20:01 97.6 76 16 161/78 97 08/11/16 16:06 97.5 78 20 135/75 96 08/11/16 12:14 98.1 77 20 119/63 99 I/O 08/11/16 08/11/16 08/11/16 08/12/16 08/12/16 08/12/16 07:00 15:00 23:00 07:00 15:00 23:00 Intake Total 1116 ml 480 ml 240 ml 120 ml Balance 1116 ml 480 ml 240 ml 120 ml Intake Oral 120 ml 480 ml 240 ml 120 ml IV Total 996 ml # Voids 5 3 3 3 # Bowel Movements 1 1 Result Diagram: 08/09/16 0602 08/12/16 0902 Imaging Last Impressions Liver Ultrasound 08/10/16 0000 Signed Impressions: Service Date/Time: Wednesday, August 10, 2016 08:54 - CONCLUSION: Unremarkable sonographic appearance of the right upper quadrant Dario Parks MD Head CT 08/08/16 1527 Signed Impressions: Service Date/Time: Monday, August 08, 2016 16:36 - CONCLUSION: 1. No acute intracranial abnormality. Kia Velasquez MD Chest X-Ray 08/08/16 1527 Signed Impressions: Service Date/Time: Monday, August 08, 2016 15:59 - CONCLUSION: 1. Cardiomegaly. 2. Scattered atelectatic changes bilaterally. 3. Degenerative changes and scoliosis of the thoracic spine. Valeriano Lemus MD Objective Remarks General: Obese elderly male in no acute distress. Heart: Regular rate and rhythm. No murmur. Lungs: Clear to auscultation bilaterally. No wheezes, rales, or rhonchi. Breathing is nonlabored. Abdomen: Soft, obese, nontender, nondistended. Extremities: No lower extremity edema. Psych: Alert, more oriented today. Procedures None Urinary Catheter: No Vascular Central Line Catheter: No A/P Problem List: (1) Hyponatremia ICD Code: E87.1 Status: Acute (2) Hypertension ICD Code: I10 Status: Chronic (3) Encephalopathy ICD Code: G93.40 Status: Acute (4) Diabetes mellitus ICD Code: E11.9 Status: Chronic Assessment and Plan 1. Severe hyponatremia: Continue sodium replacement with normal saline. The patient apparently has been drinking a lot of water. Continue fluid restriction. He also has history of significant intake of beer. Low sodium is likely secondary to beer potomania. Appreciate nephrology recommendations. Sodium is improving. 2. Atypical chest pain: Troponin is negative. Continue telemetry monitoring. 3. Diabetes mellitus, type II: Monitor Accu-Cheks and cover with sliding scale insulin. Diabetic diet. 4. Hypertension: Patient presented with significantly elevated blood pressure. Continue Vasotec as needed. Continue home antihypertensive regimen with the exception of HCTZ, which was discontinued secondary to hyponatremia. 5. Encephalopathy: Secondary to hyponatremia. 6. DVT prophylaxis: Heparin. Discharge Planning Per nephrology, can discharge home if sodium remains stable. IV fluids discontinued this morning. Recheck sodium this afternoon. Possible discharge home if sodium remains stable. Problem Qualifiers (1) Diabetes mellitus: Sky Mari MD Aug 12, 2016 10:59
[2016-08-12] MEDS ORDERED: GNP100TA3 PO (11:02)
[2016-08-12] MEDS ORDERED: LISI-515 PO (11:02)
--- NOTE | 2016-08-12 11:04 | HHI.DCPOC ---
Discharge Care Plan Diagnosis: (1) Hypertension (2) Diabetes mellitus (3) Encephalopathy (4) Hyponatremia Goals to Promote Your Health * To prevent worsening of your condition and complications * To maintain your health at the optimal level Directions to Meet Your Goals Take your medications as prescribed Follow your dietary instruction Follow activity as directed Keep your appointments as scheduled Take your immunizations and boosters as scheduled If your symptoms worsen call your PCP, if no PCP go to Urgent Care Center or Emergency Room Smoking is Dangerous to Your Health. Avoid second hand smoke Call the 24-hour hour crisis hotline for domestic abuse at Sky Mari MD Aug 12, 2016 11:04
--- NOTE | 2016-08-12 17:18 | HHI.NPPN ---
Subjective History of Present Illness Patient remains confused, his sodium is still 117, he was noncompliant and trying to drink lots of water, pulled his IV twice Additional Remarks No acute complaints Review of Systems General Constitutional: Fatigue Objective Data Data 08/11/16 08/12/16 19:00 07:00 Intake Total 480 ml 360 ml Balance 480 ml 360 ml Intake Oral 480 ml 360 ml # Voids 3 6 # Bowel Movements 1 1 Vital Signs Date Time Temp Pulse Resp B/P Pulse Ox O2 Delivery O2 Flow Rate FiO2 08/12/16 15:53 96.7 83 20 141/77 93 08/12/16 12:11 95.9 85 20 153/73 95 08/12/16 09:32 75 08/12/16 08:04 96.5 87 20 139/76 96 08/12/16 04:21 97.8 88 17 130/62 96 08/12/16 00:07 97.6 88 17 134/73 96 08/11/16 21:00 88 08/11/16 20:01 97.6 76 16 161/78 97 -: 08/09/16 0602 08/12/16 0902 Physical Exam General Appearance: Well Developed Eyes Eye Exam: Pupils Equal Neck Neck Exam: Neck Supple Pulmonary Resp Exam: Clear Bilaterally, Breath Sounds Equal Cardiology CV Exam: Regular Gastrointestinal/Abdomen GI Exam: Soft, Non-Tender, Bowel Sounds Present Integumentary Skin Exam: Clear Extremeties Extremities Exam: No Edema Neurologic Neuro Exam: Alert, Awake Assessment/Plan Problem List: (1) Hyponatremia Plan: He has been drinking beer heavily, this leads to an entity called beer Potomania, results from an adequate solute intake and drinking heavily, kidney is dependent on solute intake, if he did take more water than solutes then water intoxication can result which suppresses your antidiuretic hormone and your urine osmolality drops, due to inadequate solute intake and tries to compensated by excreting more electrolytes, urine osmolality usually is less than 100 Treatment is conservative approach and adequate solute replacement with water restriction, apparently patient is just placed on water restrictions Na improved significantly after dose of Tolvaptan given x 1, Na stable at 132 - > 131 today. Advised patient to limit etoh intake. Otherwise confusion improved with correction of hyponatremia. Will sign off for now, ok for d/c from renal standpoint. Please call if any ongoing issues - Dr. Gonzalez will be covering this week. (2) Diabetes mellitus Plan: Continue to monitor (3) Hypertension Plan: Stable Problem Qualifiers (1) Diabetes mellitus: Aaron Malik MD Aug 12, 2016 17:18
[2016-08-12] MEDS: ATORVASTATIN 40 MG TAB PO SCH (21:06)
[2016-08-13 05:00] VITALS: BP 138/65; PULSE 69; RESP 20; TEMP 97.2; O2SAT 95
[2016-08-13] MEDS: INSULIN ASPART SUPPLEMENTAL SCALE SQ SCH ×3 (07:00→16:00)
[2016-08-13 08:04] VITALS: BP 121/78; PULSE 76; RESP 18; TEMP 96.9; O2SAT 94
[2016-08-13 08:33] VITALS: PULSE 75
[2016-08-13] MEDS: LISINOPRIL 20 MG TAB PO SCH (08:33)
[2016-08-13] MEDS: THIAMINE HCL 100 MG TAB PO SCH (08:33)
[2016-08-13] MEDS: UMECLIDINIUM 62.5 MCG/VILANTEROL 25 MCG INHALER INH SCH (08:33)
[2016-08-13] MEDS: SERTRALINE HCL 50 MG TAB PO SCH (08:33)
[2016-08-13] MEDS: HEPARIN SODIUM - SQ 10,000 UNITS/ML VIAL SQ SCH (08:33)
[2016-08-13] MEDS: SODIUM CHLORIDE 0.9% FLUSH 10 ML FLUSH IV FLUSH SCH (08:34)
[2016-08-13] MEDS: DOCUSATE SODIUM 50 MG/SENNA 8.6 MG TAB PO SCH (08:34)
[2016-08-13 12:25] VITALS: BP 143/70; PULSE 77; RESP 20; TEMP 97.8; O2SAT 95
[2016-08-13 16:04] VITALS: BP 192/88; PULSE 75; RESP 18; TEMP 96.6; O2SAT 97
[2016-08-13 16:27] VITALS: BP 145/60
--- NOTE | 2016-08-13 17:27 | HHI.PR ---
Subjective Remarks feels better up and ambulating gradually around his room denies any nausea or vomiting po 100% Objective Vitals Vital Signs Date Time Temp Pulse Resp B/P Pulse Ox O2 Delivery O2 Flow Rate FiO2 08/13/16 16:27 145/60 08/13/16 16:04 96.6 75 18 192/88 97 08/13/16 12:25 97.8 77 20 143/70 95 08/13/16 08:33 75 08/13/16 08:04 96.9 76 18 121/78 94 08/13/16 05:00 97.2 69 20 138/65 95 08/12/16 20:42 96.7 78 20 129/71 97 08/12/16 20:00 78 I/O 08/12/16 08/12/16 08/12/16 08/13/16 08/13/16 08/13/16 07:00 15:00 23:00 07:00 15:00 23:00 Intake Total 120 ml 360 ml 500 ml 400 ml Output Total 0 ml Balance 120 ml 360 ml 500 ml 400 ml Intake Oral 120 ml 360 ml 500 ml 400 ml Output Urine Total 0 ml # Voids 3 3 2 # Bowel Movements 0 0 Result Diagram: 08/09/16 0602 08/12/16 1753 Imaging Last Impressions Liver Ultrasound 08/10/16 0000 Signed Impressions: Service Date/Time: Wednesday, August 10, 2016 08:54 - CONCLUSION: Unremarkable sonographic appearance of the right upper quadrant Dario Parks MD Head CT 08/08/16 1527 Signed Impressions: Service Date/Time: Monday, August 08, 2016 16:36 - CONCLUSION: 1. No acute intracranial abnormality. Kai Velasquez MD Chest X-Ray 08/08/167 Signed Impressions: Service Date/Time: Monday, August 08, 2016 15:59 - CONCLUSION: 1. Cardiomegaly. 2. Scattered atelectatic changes bilaterally. 3. Degenerative changes and scoliosis of the thoracic spine. Valeriano Lemus MD Objective Remarks obese awake and alert oriented x 3 anicteric lungs no rales or wheezes regular rhythm abdomen soft, nontender, globularly enlarged no edema steady gait Procedures None A/P Problem List: (1) Hyponatremia ICD Code: E87.1 Status: Acute (2) Hypertension ICD Code: I10 Status: Chronic (3) Encephalopathy ICD Code: G93.40 Status: Acute (4) Diabetes mellitus ICD Code: E11.9 Status: Chronic Assessment and Plan 76 years old 1. Severe hyponatremia:resolved. patient awake and alert. d/w daughter and patient. 2. Atypical chest pain: Troponin is negative. no further episodes 3. Diabetes mellitus, type II: - fairly good readings here Reinforced weight reduction, exercise.. Diabetic diet. Daughter- states they check BS good readings 4. Hypertension: some elevated readings- just now good 145/70- continue on OZZY. d/ daughter - HCTZ discontinued. Continue Vasotec as needed. Continue home antihypertensive regimen with the exception of HCTZ, which was discontinued secondary to hyponatremia. ADDed Calcium channel bernice Amlodipine 5 mg daily 5. Encephalopathy: Improved Secondary to hyponatremia. 6. DVT prophylaxis: Heparin. 7. Salmonellosis- self limiting. no diarrhea. no need for antibiotics.daughter states he had a colonsocpy done within 5 years- reportedly normal HOme today with daughter with OP ff up with PCP- with repeat lab works Problem Qualifiers (1) Diabetes mellitus: Chantal Richardson MD Aug 13, 2016 17:27
--- NOTE | 2016-08-13 17:40 | HHI.DS ---
Discharge Summary Admission Date Aug 08, 2016 at 17:29 Discharge Date: Aug 13, 2016 Admitting Diagnosis severe hyponatremia, atypical chest pain, (1) Hyponatremia ICD Code: E87.1 Diagnosis: Principal (2) Hypertension ICD Code: I10 Diagnosis: Secondary (3) Encephalopathy ICD Code: G93.40 Diagnosis: Secondary (4) Diabetes mellitus ICD Code: E11.9 Diagnosis: Secondary Procedures None Brief History - From Admission Written by Celeste Tony, acting as scribe for Dr. Brown on 08/08/16 at 23:11. Patient seen in room with no family at the bedside. He is not sure why he is here in the hospital. He denies chest pain, shortness of breath, n/v/d, black or red stool, dysuria, hematuria, falls, confusion, or dizziness. According to ER physician documentation, the patient was brought to the hospital for evaluation of altered mental status and atypical chest pain. The patient had been told to see a brand recorder by his primary care [employer] secondary to a "silent [place]"but he presented to the hospital after experiencing chest pain the day before admission followed by altered mental status on the day of admission 08/08/2016. The family had provided much of the review of systems to the emergency room physician. . CBC/BMP: 08/09/16 0602 08/12/16 1753 Significant Findings Laboratory Tests Test 08/10/16 08/11/16 08/11/16 08/11/16 21:10 01:53 06:16 13:08 Sodium Level 124 MEQ/L 129 MEQ/L 132 MEQ/L 132 MEQ/L (136-145) (136-145) (136-145) (136-145) Estimat Glomerular Filtration 71 ML/MIN (>89) Rate Total Creatine Kinase 598 U/L (39-308) Creatine Kinase MB 12.5 NG/ML (0.5-3.6) Test 08/11/16 08/12/16 08/12/16 21:42 09:02 17:53 Sodium Level 131 MEQ/L 131 MEQ/L 132 MEQ/L (136-145) (136-145) (136-145) Chloride Level 97 MEQ/L (98-107) Estimat Glomerular Filtration 77 ML/MIN (>89) Rate Random Glucose 126 MG/DL (74-106) Imaging Last Impressions Liver Ultrasound 08/10/16 0000 Signed Impressions: Service Date/Time: Wednesday, August 10, 2016 08:54 - CONCLUSION: Unremarkable sonographic appearance of the right upper quadrant Dario Parks MD Head CT 08/08/16 1527 Signed Impressions: Service Date/Time: Monday, August 08, 2016 16:36 - CONCLUSION: 1. No acute intracranial abnormality. aKi Velasquez MD Chest X-Ray 08/08/16 1527 Signed Impressions: Service Date/Time: Monday, August 08, 2016 15:59 - CONCLUSION: 1. Cardiomegaly. 2. Scattered atelectatic changes bilaterally. 3. Degenerative changes and scoliosis of the thoracic spine. Valeriano Lemus MD PE at Discharge obese awake and alert oriented x 3, speech clear anicteric lungs no rales or wheezes regular rhythm abdomen soft, nontender, globularly enlarged no edema steady gait Pt update on day of discharge awake and alert, good po no edema ambulating around advised on weight reduction, exercise no diuretics also d/w on the phone OP ff up with Dr. Varela with repeat lab works at bedside long discussion with daughter- - regarding beer intake- apparently drinks a lot - counselled extensively Hospital Course 76 years old 1. Severe hyponatremia:resolved. patient awake and alert. d/w daughter and patient. 2. Atypical chest pain: Troponin is negative. no further episodes 3. Diabetes mellitus, type II: - fairly good readings here Reinforced weight reduction, exercise.. Diabetic diet. Daughter- states they check BS good readings 4. Hypertension: some elevated readings- just now good 145/70- continue on OZZY. d/ daughter - HCTZ discontinued. Continue Vasotec as needed. Continue home antihypertensive regimen with the exception of HCTZ, which was discontinued secondary to hyponatremia. ADDed Calcium channel bernice Amlodipine 5 mg daily 5. Encephalopathy: Improved Secondary to hyponatremia. 6. DVT prophylaxis: Heparin. 7. Salmonellosis- self limiting. no diarrhea. no need for antibiotics.daughter states he had a colonsocpy done within 5 years- reportedly normal HOme today with daughter with OP ff up with PCP- with repeat lab works OP ff up with Dr. Gonzalez discussed with her regarding Na level- stabilizing past 3 days. DC HCTZ. regarding glucose monitoring, fluid restriction. Pt Condition on Discharge: Stable Discharge Disposition: Discharge Home Discharge Time: <= 30 minutes Discharge Instructions DIET: Follow Instructions for: Heart Healthy Diet Speech Therapy-Diet Recommends: Regular Additional Diet Instructions: fluid restriction advise on weight reduction Activities you can perform: Weight Bearing as Komal Follow up Referrals: Nephrology - 1 Week with Kiah Gonzalez MD PCP Follow-up - 1 Week with Jackeline Varela New Orders: BASIC METABOLIC PROF - 2-3 Days New Medications: Lisinopril (Lisinopril) 20 Mg Tab 20 MG PO Q12HR Blood Pressure Management #60 Ref 0 TAB Thiamine HCl (Gnp Vitamin B-1) 100 Mg Tab 100 MG PO DAILY Nutritional Supplement #30 Ref 0 TAB Continued Medications: Albuterol 8.5 GM Inh (Proair Hfa 8.5 GM Inh) 90 Mcg/Act Aer 1-2 PUFF INH Q4-6H 108 mcg/actuation PRN SHORTNESS OF BREATH #1 Ref 0 INHALER Amlodipine (Amlodipine) 5 Mg Tab 5 MG PO DAILY Blood Pressure Management #30 Ref 0 TAB Atorvastatin (Atorvastatin) 40 Mg Tab 40 MG PO HS Cholesterol Management #30 Ref 0 TAB Metoprolol Tartrate (Metoprolol Tartrate) 25 Mg Tab 25 MG PO DAILY #30 Ref 0 TAB Sertraline (Sertraline) 50 Mg Tab 50 MG PO DAILY #30 Ref 0 TAB Umeclidinium-Vilanterol Inh (Anoro Ellipta Inh) 62.5-25 Mcg/Act Aero 1 PUFF INH DAILY COPD #1 Ref 0 INHALER Discontinued Medications: Lisinopril-Hctz (Lisinopril-Hctz) 20-25 Mg Tab 1 TAB PO BID Blood Pressure Management #30 Ref 0 TAB Chantal Richardson MD Aug 13, 2016 17:40
--- NOTE | 2016-08-13 19:13 | HHI.NPPN ---
Subjective History of Present Illness Patient remains confused, his sodium is still 117, he was noncompliant and trying to drink lots of water, pulled his IV twice Additional Remarks No acute complaints Review of Systems General Constitutional: Fatigue Objective Data Data 08/12/16 08/13/16 19:00 07:00 Intake Total 360 ml 900 ml Output Total 0 ml Balance 360 ml 900 ml Intake Oral 360 ml 900 ml Output Urine Total 0 ml # Voids 3 2 # Bowel Movements 0 Vital Signs Date Time Temp Pulse Resp B/P Pulse Ox O2 Delivery O2 Flow Rate FiO2 08/13/16 16:27 145/60 08/13/16 16:04 96.6 75 18 192/88 97 08/13/16 12:25 97.8 77 20 143/70 95 08/13/16 08:33 75 08/13/16 08:04 96.9 76 18 121/78 94 08/13/16 05:00 97.2 69 20 138/65 95 08/12/16 20:42 96.7 78 20 129/71 97 08/12/16 20:00 78 -: 08/09/16 0602 08/12/16 1753 Physical Exam General Appearance: Well Developed Eyes Eye Exam: Pupils Equal Neck Neck Exam: Neck Supple Pulmonary Resp Exam: Clear Bilaterally, Breath Sounds Equal Cardiology CV Exam: Regular Gastrointestinal/Abdomen GI Exam: Soft, Non-Tender, Bowel Sounds Present Integumentary Skin Exam: Clear Extremeties Extremities Exam: No Edema Neurologic Neuro Exam: Alert, Awake Assessment/Plan Problem List: (1) Hyponatremia Plan: He has been drinking beer heavily, this leads to an entity called beer Potomania, results from an adequate solute intake and drinking heavily, kidney is dependent on solute intake, if he did take more water than solutes then water intoxication can result which suppresses your antidiuretic hormone and your urine osmolality drops, due to inadequate solute intake and tries to compensated by excreting more electrolytes, urine osmolality usually is less than 100 Treatment is conservative approach and adequate solute replacement with water restriction, apparently patient is just placed on water restrictions Na improved significantly after dose of Tolvaptan given x 1, Na stable at 132 today. Advised patient to limit etoh intake. Otherwise confusion improved with correction of hyponatremia. i saw him as stool positive for Salmonella d/w Dr. Richardson she will address. (2) Diabetes mellitus Plan: Continue to monitor (3) Hypertension Plan: Stable Problem Qualifiers (1) Diabetes mellitus: Kiah Gonzalez MD Aug 13, 2016 19:13
== END 2016-08-13 20:05 | disposition home or self-care (01) | DRG 640 ==
LOC: NEPC 14:59 → NEDA 17:29 → N05A 19:23 → N05B 08-10 20:45
PROVIDERS: ADMIT Internal Medicine; ATTEND Internal Medicine
DX: E87.1 Hypo-osmolality and hyponatremia (principal); G93.41 Metabolic encephalopathy; J44.9 Chronic obstructive pulmonary disease, unspecified; E11.9 Type 2 diabetes mellitus without complications; A02.9 Salmonella infection, unspecified; I10 Essential (primary) hypertension; I16.0 Hypertensive urgency; I25.10 Atherosclerotic heart disease of native coronary artery without angina pectoris; E66.9 Obesity, unspecified; F10.20 Alcohol dependence, uncomplicated; Z87.891 Personal history of nicotine dependence; Z68.37 Body mass index [BMI] 37.0-37.9, adult; Z91.19 Patient's noncompliance with other medical treatment and regimen
CPT/HCPCS: 70450; 71010; 76705; 76937; 80048; 80053; 81001; 82140; 82550; 82552; 82948; 83036; 83735; 83930; 83935; 84295; 84300; 84443; 84484; 85025; 85610; 85730; 87086; 87493; 87506; 93005; 96360; J1644; J1815; J7030

== ENCOUNTER 2016-08-22 15:35 | Observation (INO) | payer MEDICARE ==
[~2016-08-22 15:35] MED LIST: ALBUAER3 INH; AMLO5TAB2 PO; ATOR40TA16 PO; GNP100TA3 PO; LISI-515 PO; METO25TA3 PO; SERT-132 PO; UMEC1AER INH
[2016-08-22 15:37] VITALS: BP 152/71; PULSE 86; RESP 18; TEMP 98.9; O2SAT 96
[2016-08-22 17:31] VITALS: BP 144/78; PULSE 77; TEMP 98.9
[2016-08-22] MEDS ORDERED: FENO145T2 PO (17:45)
[2016-08-22] MEDS ORDERED: DULA10IN SQ (17:45)
[2016-08-22 18:11] LABS: AUTOMATED NEUTROPHIL # 11.1 TH/MM3 (1.8-7.7); BASOPHIL # 0.1 TH/MM3 (0-0.2); BASOPHIL % 0.8 % (0.0-2.0); EOSINOPHIL # 0.2 TH/MM3 (0-0.4); EOSINOPHIL % 1.2 % (0.0-4.0); HEMATOCRIT 42.6 % (39.0-51.0); HEMO FLAGS DIFF FINAL; LYMPH % 11.6 % (9.0-44.0); LYMPHOCYTE # 1.6 TH/MM3 (1.0-4.8); MEAN CORPUSCULAR HEMOGLOBIN 28.8 PG (27.0-34.0); MEAN CORPUSCULAR HGB CONC 32.8 % (32.0-36.0); MONO % 5.9 % (0.0-8.0); NEUT % 80.5 % (16.0-70.0); PLATELET COUNT 245 TH/MM3 (150-450); RED BLOOD COUNT 4.84 MIL/MM3 (4.50-5.90); RED CELL DISTRIBUTION WIDTH 13.1 % (11.6-17.2); WHITE BLOOD COUNT 13.8 TH/MM3 (4.0-11.0)
[2016-08-22 18:37] LABS: ALT (GPT) 22 U/L (12-78)
--- NOTE | 2016-08-22 18:53 | PD ---
HPI Chief Complaint: Abnormal Results Time Seen by Provider: 17:26 (Sherrill Nj MD) Travel History International Travel<30 days: No Contact w/Intl Traveler<30days: No Traveled to known affect area: No (Sherrill Nj MD) History of Present Illness HPI This is a 76-year-old male patient with a past medical history of hypertension COPD type 2 diabetes metabolic encephalopathy who presents with family request of her primary care doctor for a low sodiumm he states for the past 3 weeks patient has been confused. She was admitted to the hospital for hyponatremia sodium was correct and he was discharged home. She'll have to see a primary care physician for reevaluation and noted to be still confused and repeat labs were done that time. Patient was told to come to the ER for persistent abnormality of his lab values. Patient denies headache neck stiffness nausea vomiting diarrhea Medication use. Patient was a long-time drinker of alcohol but discontinued these use in the last 2 months. (Sherrill Nj MD) PFSH Past Medical History Cancer: No Cardiovascular Problems: Yes (NE) High Cholesterol: Yes COPD: Yes Diabetes: Yes Patient Takes Glucophage: No Diminished Hearing: Yes Endocrine: Yes Gastrointestinal Disorders: Yes Genitourinary: No Hypertension: Yes Immune Disorder: No Musculoskeletal: No Neurologic: No Reproductive: No Respiratory: Yes (COPD) Triglycerides - High: Yes (Sherrill Nj MD) Past Surgical History Cholecystectomy: Yes (Sherrill Nj MD) Social History Alcohol Use: No (RECENTLY STOPPED ) Tobacco Use: No Substance Use: No (Sherrill Nj MD) Allergies-Medications (Allergen,Severity, Reaction): Coded Allergies: No Known Allergies (Unverified , 08/22/16) Reported Meds & Prescriptions Reported Meds & Active Scripts Active Gnp Vitamin B-1 (Thiamine HCl) 100 Mg Tab 100 Mg PO DAILY Lisinopril 20 Mg Tab 20 Mg PO Q12HR Reported Trulicity Inj (Dulaglutide Inj) 0.75 Mg/0.5 Ml Pen 0.75 Mg SQ Q7D Fenofibrate 145 Mg Tab 145 Mg PO DAILY Anoro Ellipta Inh (Umeclidinium/Vilanterol) 62.5-25 Mcg/Act Aero 1 Puff INH DAILY Amlodipine (Amlodipine Besylate) 5 Mg Tab 5 Mg PO DAILY Proair Hfa 8.5 GM Inh (Albuterol Sulfate) 90 Mcg/Act Aer 1-2 Puff INH Q4-6H PRN 108 mcg/actuation Atorvastatin (Atorvastatin Calcium) 40 Mg Tab 40 Mg PO HS Metoprolol Tartrate 25 Mg Tab 25 Mg PO DAILY Sertraline (Sertraline HCl) 50 Mg Tab 50 Mg PO DAILY (Shannon Elizondo MD) Review of Systems ROS Limitations: Clinical Condition General / Constitutional: No: Fever, Chills, Weight Gain, Weight Loss, Other Eyes: No: Diploplia, Blurred Vision, Photophobia, Drainage, Redness, Foreign Body Sensation, Pain, Tearing, Blind Spots, Visual changes, Blindness, Other HENT: No: Headaches, Vertigo, Lightheadedness, Sore Throat, Rhinitis, Rhinorrhea, Congestion, Nosebleed, Neck Stiffness, Neck Pain, Masses, Gingival Bleeding, Dental Difficulties, Ear Discharge, Earache, Other Cardiovascular: No: Chest Pain or Discomfort, Palpitations, Irregular Rhythm, Tachycardia, Diaphoresis, Syncope, Dyspnea on exertion, Varicosities, Edema, Cyanosis, Varicosities, Phlebitis, Claudication, Other Respiratory: No: Cough, Shortness of Breath, Wheezing, Sneezing, Orthopnea, Hemoptysis, Stridor, Night Sweats, Pleuritic Pain, Other Gastrointestinal: No: Nausea, Vomiting, Diarrhea, Abdominal Pain, Hematemesis, Hematochezia, Constipation, Changes in Bowel Habits, Indigestion, Dysphagia, Loss of Appetite, Other Genitourinary: No: Urgency, Frequency, Dysuria, Nocturia, Hematuria, Decreased Urinary Output, Oliguria, Hesitancy, Dribbling, Incontinence, Pelvic Pain, Flank Pain, Dyspareunia, Discharge, Dysmenorrhea, Menorrhagia, Metorrhagia, Vaginal Bleeding, Other Musculoskeletal: No: Myalgias, Arthralgias, Limited ROM, Weakness, Cramping, Edema, Pain, Atrophy, Other Skin: No Rash, No Itching, No Dryness, No Lumps, No Hives, No Change in Pigmentation, No Change in nails, No Alopecia, No Lesions, No Breast Lumps, No Breast Tenderness, No Breast Swelling, No Other Neurologic: Positive: Other (confusion decreased activity level), No: Weakness , Dizziness, Syncope, Focal Abnormalities, Coordination Problem, Tremor, Ataxia , Headache, Change in Mentation, Slurred Speech, Paresthesia, Incontinence, Seizures, Sensory Disturbance Psychiatric: No: Anxiety, Depression, Suicidal Ideations, Disorder of Thought, Mood Disorder, Substance Abuse, Homicidal Ideation, Other (Sherrill Nj MD) Physical Exam Exam Limitations: Clinical Condition Narrative GENERAL: Older male patient no acute distress SKIN: Focused skin assessment warm/dry.no lesions no cyanosis no erythema HEAD: Atraumatic. Normocephalic. EYES: Pupils equal and round and reactive . No scleral icterus. No injection or drainage. ENT: No nasal bleeding or discharge. Mucous membranes pink and moist. NECK: Trachea midline. No JVD. CARDIOVASCULAR: S1-S2 appreciated. Regular rate and rhythm. No murmur appreciated. Pulses normal throughout. RESPIRATORY: No accessory muscle use. Clear to auscultation. Breath sounds equal bilaterally. GASTROINTESTINAL: Abdomen soft, non-tender, nondistended. Hepatic and splenic margins not palpable. Bowel sounds normal. No peritoneal signs. MUSCULOSKELETAL: No obvious deformities. No clubbing. No cyanosis. No edema. NEUROLOGICAL: Awake and alert and oriented 3.. No obvious focal motor or sensory deficits patient noted to have a paucity of movement and speech. No meningeal signs. PSYCHIATRIC: Affect appears flat; insight and judgment normal. No suicidal or homicidal ideation. (Sherrill Nj MD) Data Data Orders Complete Blood Count With Diff (08/22/16 16:28) Urinalysis - C+S If Indicated (08/22/16 17:36) Ct Brain W/O Iv Contrast(Rout) (08/22/16 ) Electrocardiogram (08/22/16 ) Creatine Kinase (Cpk) (08/22/16 17:36) Troponin I (08/22/16 17:36) Comprehensive Metabolic Panel (08/22/16 17:36) Chest, Pa & Lat (08/22/16 ) Place In Observation (08/22/16 ) Vital Signs (Adult) Q4H (08/22/16 19:31) Activity Oob With Assistance (08/22/16 19:31) Counter Waitress/Waiter / Telemetry .CONTINUOUS (08/22/16 19:31) Intake + Output LORRIE.QSHIFT (08/22/16 19:31) Sodium Chloride 0.9% Flush (Ns Flush) (08/22/16 19:45) Sodium Chloride 0.9% Flush (Ns Flush) (08/22/16 21:00) Basic Metabolic Panel (Bmp) (08/23/16 06:00) Complete Blood Count With Diff (08/23/16 06:00) Pt Request For Service (08/22/16 19:31) Case Management Consult (08/22/16 19:31) Naloxone Inj (Narcan Inj) (08/22/16 19:45) Admit Order (Ed Use Only) (08/22/16 19:34) (Shannon Elizondo MD) MDM Medical Decision Making Interpretation(s) EKG shows normal sinus rhythm low voltage poor R-wave progression old Q waves in inferior leads (Sherrill Nj MD) Medical Screen Exam Complete: Yes Emergency Medical Condition: Yes Differential Diagnosis Apparatus Operator signing for document in draft. Narrative Course Apparatus Operator signing for document in draft. (Shannon Elizondo MD) Diagnosis Primary Impression: Hyponatremia Admitting Information Admitting Physician Requests: Observation (Shannon Elizondo MD) Scripts Sodium Chloride 1 Gm Tab1 Gm PO TID #90 TAB Prov:Tree Yuan MD 08/24/16 Sherrill Nj MD Aug 22, 2016 18:53 Shannon Elizondo MD Aug 31, 2016 17:34 Neutrophils (%) (Auto) 80.5 % Lymphocytes (%) (Auto) 11.6 % Monocytes (%) (Auto) 5.9 % Eosinophils (%) (Auto) 1.2 % Basophils (%) (Auto) 0.8 % Neutrophils # (Auto) 11.1 TH/MM3 Lymphocytes # (Auto) 1.6 TH/MM3 Monocytes # (Auto) 0.8 TH/MM3 Eosinophils # (Auto) 0.2 TH/MM3 Basophils # (Auto) 0.1 TH/MM3 CBC Comment DIFF FINAL Differential Comment Sodium Level 128 MEQ/L Potassium Level 5.5 MEQ/L Chloride Level 96 MEQ/L Carbon Dioxide Level 22.7 MEQ/L Anion Gap 9 MEQ/L Blood Urea Nitrogen 20 MG/DL Creatinine 1.38 MG/DL Estimat Glomerular Filtration 50 ML/MIN Rate Random Glucose 158 MG/DL Calcium Level 8.9 MG/DL Total Bilirubin 0.6 MG/DL Aspartate Amino Transf 36 U/L (AST/SGOT) Alanine Aminotransferase 22 U/L (ALT/SGPT) Alkaline Phosphatase 82 U/L Total Creatine Kinase 158 U/L Troponin I LESS THAN 0.02 NG/ML Total Protein 7.3 GM/DL Albumin 3.3 GM/DL MDM Medical Decision Making Interpretation(s) EKG shows normal sinus rhythm low voltage poor R-wave progression old Q waves in inferior leads Sherrill Nj MD Aug 22, 2016 18:53
--- NOTE | 2016-08-22 18:53 | RADRPT ---
EXAM DATE/TIME: 08/22/2016 18:44 [facility] COMPARISON: CT BRAIN W/O CONTRAST, August 08, 2016, 16:36. INDICATIONS : Evaluate for altered mental status. RADIATION DOSE: 56.35 CTDIvol (mGy) MEDICAL HISTORY : Cardiovascular disease. Myocardial infarction. Hypertension.COPD, Diabetes. SURGICAL HISTORY : Cholecystectomy. Defibrillator. ENCOUNTER: Initial ACUITY: 1 day PAIN SCALE: 1/10 LOCATION: Bilateral cranial TECHNIQUE: Multiple contiguous axial images were obtained of the head. Using automated exposure control and adj ustment of the mA and/or kV according to patient size, radiation dose was kept as low as reasonably a chievable to obtain optimal diagnostic quality images. DICOM format image data is available electro nically for review and comparison. FINDINGS: CEREBRUM: The ventricles are normal for age. No evidence of midline shift, mass lesion, hemorrhage or acute in farction. No extra-axial fluid collections are seen. POSTERIOR FOSSA: The cerebellum and brainstem are intact. The 4th ventricle is midline. The cerebellopontine angle i s unremarkable. EXTRACRANIAL: The visualized portion of the orbits is intact. SKULL: The calvaria is intact. No evidence of skull fracture. CONCLUSION: Negative for an acute process.. Kyle Nova MD FACR on August 22, 2016 at 18:51 Board Certified Radiologist. This report was verified electronically.
[2016-08-22 18:54] LABS: ALKALINE PHOSPHATASE 82 U/L (45-117); ANION GAP 9 MEQ/L (5-15); AST (GOT) 36 U/L (15-37); BICARBONATE 22.7 MEQ/L (21.0-32.0); BLOOD UREA NITROGEN 20 MG/DL (7-18); CHLORIDE 96 MEQ/L (98-107); CREATINE KINASE 158 U/L (39-308); GLOMERULAR FILTRATION RATE 50 ML/MIN (>89); POTASSIUM 5.5 MEQ/L (3.5-5.1); SODIUM (NA) 128 MEQ/L (136-145); TOTAL BILIRUBIN ADULT 0.6 MG/DL (0.2-1.0)
[2016-08-22 19:00] VITALS: BP 123/83; PULSE 75; RESP 18; O2SAT 96
[2016-08-22] MEDS ORDERED: NALOXONE HCL 0.4 MG/ML AMP IV PRN (19:45)
[2016-08-22] MEDS ORDERED: SODIUM CHLORIDE 0.9% FLUSH 10 ML FLUSH IV FLUSH PRN (19:45)
--- NOTE | 2016-08-22 19:48 | RADRPT ---
EXAM DATE/TIME: 08/22/2016 19:32 [facility] COMPARISON: No previous studies available for comparison. INDICATIONS : Short of breath. MEDICAL HISTORY : Myocardial infarction. Hypertension Chronic obstructive pulmonary disease. SURGICAL HISTORY : Cholecystectomy. ENCOUNTER: Initial ACUITY: 1 day PAIN SCORE: 0/10 LOCATION: Bilateral chest FINDINGS: There is mild compensated cardiomegaly and minimal pleural thickening evident. There is no other con solidation or pleural effusion. Degenerative changes are present in the thoracic spine. CONCLUSION: Mild compensated cardiomegaly Kyle Nova MD FACR on August 22, 2016 at 19:46 Board Certified Radiologist. This report was verified electronically.
[2016-08-22 20:14] LABS: BLOOD, URINE NEG (NEG); COMMENT (UR) CULT NOT INDICATED; CULTURE IF INDICATED CULT NOT INDICATED; GLUCOSE,URINE TRACE mg/dL (NEG); KETONE, URINE NEG (NEG); NITRITE,URINE NEG (NEG); URINE COLOR YELLOW (YELLW/STRAW)
[2016-08-22] MEDS ORDERED: SODIUM POLYSTYRENE SULFONATE SUSP 15 GM/60 ML CUP PO ONE (20:45)
[2016-08-22] MEDS: SODIUM CHLORIDE 0.9% FLUSH 10 ML FLUSH IV FLUSH SCH (21:00)
[2016-08-22] MEDS: SODIUM CHLOR 0.9% 1000 ML INJ 1,000 ML IV SCH (21:01)
--- NOTE | 2016-08-22 21:44 | HHI.HP ---
[facility] Primary Care Physician SHAHNAZ Marshall Admission Diagnosis Confusion hyponatremia Diagnoses: (1) Hyponatremia (2) Encephalopathy (3) Hyperkalemia Chief Complaint: Altered mental status, hyponatremia Travel History International Travel<30 Days: No Contact w/Intl Traveler <30 Da: No Traveled to Known Affected Are: No History of Present Illness Written by Celeste Tony, acting as scribe for Dr. Brown on 08/22/16 at 21:44. This is the patient's second admission in the past two weeks for altered mental status. The cause of AMS during prior admission was determined to be hyponatremia but family reports today that patient had facial droop prior to last admission on 08/08/16. The patient is seen in the ED with family at the bedside. His family reports that his sodium was low on outpatient labs. Family reports that for the past 3 weeks, his mental status has been altered. Family reports that his mental status remains unchanged since the last admission when he was altered. The PCP said his sodium level was 121 on Saturday and referred him to ER today - he had a repeat sodium done at [facility] at around 1 p.m. today, results unknown. [facility] examined him and said his heart is "enlarged". Here in ED: potassium level was 5.5 on admission, sodium was 128. BUN - 20, Creatinine - 1.38, eGFR - 50. Denies syncope, palpitations, n/v/diarrhea, fever, night sweats, chills, cough, or dysuria. Denies black or red stool. Denies dysuria, urinates less frequently but also on fluid restriction. Has not had any alcohol in one month. Last HgA1C was "8 something" per family. Reports back pain that is chronic and has been evaluated by PCP with uncertain etiology. Patient has blood work done every 3 months by PCP and this is the first time his sodium has been reported as low. 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 Past Surgical History Cholecystectomy Colonoscopy - colon polyp found in [place] - last done about a year ago . Reported Medications Reported Meds & Active Scripts Active Gnp Vitamin B-1 (Thiamine HCl) 100 Mg Tab 100 Mg PO DAILY Lisinopril 20 Mg Tab 20 Mg PO Q12HR Reported Trulicity Inj (Dulaglutide Inj) 0.75 Mg/0.5 Ml Pen 0.75 Mg SQ Q7D Fenofibrate 145 Mg Tab 145 Mg PO DAILY Anoro Ellipta Inh (Umeclidinium/Vilanterol) 62.5-25 Mcg/Act Aero 1 Puff INH DAILY Amlodipine (Amlodipine Besylate) 5 Mg Tab 5 Mg PO DAILY Proair Hfa 8.5 GM Inh (Albuterol Sulfate) 90 Mcg/Act Aer 1-2 Puff INH Q4-6H PRN 108 mcg/actuation Atorvastatin (Atorvastatin Calcium) 40 Mg Tab 40 Mg PO HS Metoprolol Tartrate 25 Mg Tab 25 Mg PO DAILY Sertraline (Sertraline HCl) 50 Mg Tab 50 Mg PO DAILY . Allergies: Coded Allergies: No Known Allergies (Unverified , 08/22/16) Active Ordered Medications Current Medications Sodium Chloride (NS Flush) 2 ml UNSCH PRN IV FLUSH FLUSH AFTER USING IV ACCESS ; Start 08/22/16 at 19:45 Sodium Chloride (NS Flush) 2 ml BID IV FLUSH Last administered on 08/22/16 21: 00; Start 08/22/16 at 21:00 Naloxone HCl 0.4 mg 0.4 mg UNSCH PRN IV SEE LABEL COMMENTS; Start 08/22/16 at 19:45 Sodium Chloride (NS 1000 ml Inj) 1,000 ml @ 84 mls/hr [id number] IV Last administered on 08/22/16 21:01; Start 08/22/16 at 21:00 Sodium Polystyrene Sulfonate (Kayexalate Liq) 30 gm ONCE ONCE PO Last administered on 08/22/16 21:32; Start 08/22/16 at 20:45; Stop 08/22/16 at 21:18 ; Status DC . Family History Family members of "old age" Social History Tobacco: smoked one pack every two months - quit > 20 years ago Alcohol: heavy drinker with no alcohol use in the past month Illicit Drugs: denies . Physical Exam Vital Signs Vital Signs Date Time Temp Pulse Resp B/P Pulse Ox O2 Delivery O2 Flow Rate FiO2 08/22/16 19:00 75 18 123/83 96 Room Air 08/22/16 17:31 98.9 77 144/78 08/22/16 17:31 20 97 Room Air 08/22/16 15:37 98.9 86 18 152/71 96 Room Air Physical Exam GENERAL: This is an obese elderly male patient, in no apparent distress. SKIN: No rashes. Cool and dry. HEAD: Atraumatic. Normocephalic. EYES: No scleral icterus. No injection or drainage. ENT: Nose without bleeding, purulent drainage. NECK: Trachea midline. No JVD or lymphadenopathy. CARDIOVASCULAR: Regular rate and rhythm without murmurs, gallops, or rubs. RESPIRATORY: Clear to auscultation. Breath sounds equal bilaterally. No wheezes , rales, or rhonchi. GASTROINTESTINAL: Abdomen protuberant, soft, non-tender, nondistended. No guarding. MUSCULOSKELETAL: Extremities without clubbing, cyanosis, or edema. No calf tenderness. NEUROLOGICAL: Awake and alert. Affect flat. Motor and sensory grossly within normal limits. Normal speech. . Laboratory Laboratory Tests Test 08/22/16 08/22/16 17:20 19:12 White Blood Count 13.8 Red Blood Count 4.84 Hemoglobin 13.9 Hematocrit 42.6 Mean Corpuscular Volume 88.0 Mean Corpuscular Hemoglobin 28.8 Mean Corpuscular Hemoglobin 32.8 Concent Red Cell Distribution Width 13.1 Platelet Count 245 Mean Platelet Volume 8.2 Neutrophils (%) (Auto) 80.5 Lymphocytes (%) (Auto) 11.6 Monocytes (%) (Auto) 5.9 Eosinophils (%) (Auto) 1.2 Basophils (%) (Auto) 0.8 Neutrophils # (Auto) 11.1 Lymphocytes # (Auto) 1.6 Monocytes # (Auto) 0.8 Eosinophils # (Auto) 0.2 Basophils # (Auto) 0.1 CBC Comment DIFF FINAL Differential Comment Sodium Level 128 Potassium Level 5.5 Chloride Level 96 Carbon Dioxide Level 22.7 Anion Gap 9 Blood Urea Nitrogen 20 Creatinine 1.38 Estimat Glomerular Filtration 50 Rate Random Glucose 158 Calcium Level 8.9 Total Bilirubin 0.6 Aspartate Amino Transf 36 (AST/SGOT) Alanine Aminotransferase 22 (ALT/SGPT) Alkaline Phosphatase 82 Total Creatine Kinase 158 Troponin I LESS THAN 0.02 Total Protein 7.3 Albumin 3.3 Urine Color YELLOW Urine Turbidity CLEAR Urine pH 6.0 Urine Specific [place] 1.013 Urine Protein 30 Urine Glucose (UA) TRACE Urine Ketones NEG Urine Occult Blood NEG Urine Nitrite NEG Urine Bilirubin NEG Urine Urobilinogen LESS THAN 2.0 Urine Leukocyte Esterase TRACE Urine RBC 1 Urine WBC 3 Microscopic Urinalysis Comment CULT NOT INDICATED Result Diagram: 08/22/16 1720 08/22/16 1720 Imaging Last Impressions Head CT 08/22/16 0000 Signed Impressions: Service Date/Time: Monday, August 22, 2016 18:44 - CONCLUSION: Negative for an acute process.. Kyle Nova MD FACR Chest X-Ray 08/22/16 0000 Signed Impressions: Service Date/Time: Monday, August 22, 2016 19:32 - CONCLUSION: Mild compensated cardiomegaly Kyle Nova MD FACR Assessment and Plan Problem List: (1) Hyponatremia ICD Code: E87.1 Status: Acute (2) Encephalopathy ICD Code: G93.40 Status: Acute (3) Hyperkalemia ICD Code: E87.5 Status: Acute Assessment and Plan This is the patient's second admission in the past two weeks for altered mental status. The cause of AMS during prior admission was determined to be hyponatremia but family reports today that patient had facial droop prior to last admission on 08/08/16. Hyponatremia - thought to be related to excessive fluid intake during last admission - family reports fluid restriction continued at home - Initial sodium level is 128 on admission - consult nephrology - replace sodium with NS at 84 cc/hr Encephalopathy subacute CVA vs Wernicke's encephalopathy vs hyponatremia - EEG - to check for seizure activity - Brain MRI - to evaluate organic brain disease r/o subacute infarct - carotid ultrasound to check for carotid stenosis - 2 D echocardiogram - to assess cardiac structure and function - consult neurology Hyperkalemia - Initial potassium 5.5 - Kayexalate 30 gram p.o. now - recheck bmp and follow potassium results - correct potassium as needed - consult internal controls consultant History of alcohol abuse - Received one shot of B12 at PCP - Supplement with Folate, Thiamine, and MVI DVT prophylaxis - Lovenox 40 mg subq q24h . Discussed Condition With ER physician, RN, patient's daughter, patient's , and patient . Celeste Tony Aug 22, 2016 21:44
--- NOTE | 2016-08-22 22:27 | EKG ---
Date Performed: 08/22/2016 Time Performed: 18:34:26 PTAGE: 76 years EKG: Sinus rhythm WITH SINUS ARRHYTHMIA LOW QRS VOLTAGE IN PRECORDIAL LEADS POSSIBLE ANTERIOR MYOCARDIAL INFARCTION AB NORMAL ECG PREVIOUS TRACING : 08/09/2016 03.56 No significant change from previous tracing noted. DOCTOR: Jose Lutz Interpretating Date/Time 08/22/2016 22:25:18
--- NOTE | 2016-08-22 23:49 | RADRPT ---
EXAM DATE/TIME: 08/22/2016 23:00 This report includes an Addendum and supersedes previous reports for this exam. [facility] COMPARISON: No previous studies available for comparison. INDICATIONS : TIA. MEDICAL HISTORY : Hypertension. Chronic obstructive pulmonary disease. Diabetes mellitus type 2. SURGICAL HISTORY : Cholecystectomy. Skin graft ENCOUNTER: Subsequent ACUITY: 2 weeks PAIN SCORE: 1/10 LOCATION: Bilateral cranial TECHNIQUE: Multiplanar, multisequence MRI of the brain was performed without contrast. FINDINGS: CEREBRUM: Diffuse atrophy with frontal lobe predominance. No evidence of midline shift, mass lesion, hemorrhage or acute infarction. No extraaxial fluid collections are seen. The pituitary gland and suprasellar cistern are normal in configuration. WHITE MATTER: Symmetric bilateral periventricular and subcortical white matter hyperintensities indicating chronic small vessel white matter ischemic change. POSTERIOR FOSSA: The cerebellum and brainstem are intact. The 4th ventricle is midline. The cerebellopontine angle is unremarkable. The cerebellar tonsils are normal in position.DIFFUSION IMAGING: No focal areas of restricted diffusion are seen. No evidence of acute infarction. EXTRACRANIAL: The visualized portions of the orbits and paranasal sinuses are unremarkable. CONCLUSION: 1. No evidence of acute infarct. 2. Diffuse atrophy with frontal lobe predominance and chronic small vessel white matter ischemic seth ge. Oneil Velasco MD on August 22, 2016 at 23:43 Board Certified Radiologist. This report was verified electronically. 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 Oneil Velasco MD on August 23, 2016 at 0:47 Board Certified Radiologist. This report was verified electronically.
[2016-08-23] VITALS (8 sets, daily range): BP systolic 125–158; BP diastolic 63–95; PULSE 74–97; RESP 17–20; TEMP 97.1–98.3; O2SAT 93–98
--- NOTE | 2016-08-23 00:36 | RADRPT ---
EXAM DATE/TIME: 08/22/2016 23:15 [facility] COMPARISON: No previous studies available for comparison. INDICATIONS : Transient ischemic attack. MEDICAL HISTORY : Chronic obstructive pulmonary disease. Gastroesophageal reflux disease. Hypertension. Myocardial infa rction. Hyperlipidemia. Diabetes. Endocrine disorder. SURGICAL HISTORY : Cholecystectomy. Skin grafting. ENCOUNTER: Initial ACUITY: 1 day PAIN SCORE: 0/10 LOCATION: Bilateral neck PEAK SYSTOLIC VELOCITIES (cm/sec): ICA/CCA RATIO: Right: 0.8 Left: 1.4 ICA: Right: 93.8 Left: 127.2 CCA: Right: 113.6 Left: 93.9 ECA: Right: 158.1 Left: 84.1 VERTEBRAL: Right: 38.3 antegrade Left: 60.8 antegrade Elevated flow velocities and ICA/CCA ratios have been found to correlate with increased degrees of vessel stenosis, calculated as percentage of diameter relative to a normal segment of distal ICA/CCA FINDINGS: RIGHT CAROTID: Mild calcified plaque at the right carotid bulb. LEFT CAROTID: Severe calcified plaque of the left carotid bulb. VERTEBRAL ARTERIES: Antegrade flow is seen in both vertebral arteries. MISCELLANEOUS: None. CONCLUSION: Severe calcified plaque on the left on the grayscale images. No evidence of hemodynamically significa nt carotid stenosis by peak systolic velocity criteria. Oneil Velasco MD on August 23, 2016 at 0:32 Board Certified Radiologist. This report was verified electronically.
[2016-08-23] MEDS: ENOXAPARIN SODIUM 40 MG/0.4 ML SYRINGE SQ SCH ×2 (04:27→22:28)
[2016-08-23 07:44] LABS: AUTOMATED NEUTROPHIL # 8.3 TH/MM3 (1.8-7.7); BASOPHIL # 0.1 TH/MM3 (0-0.2); BASOPHIL % 0.5 % (0.0-2.0); EOSINOPHIL # 0.1 TH/MM3 (0-0.4); EOSINOPHIL % 1.3 % (0.0-4.0); HEMATOCRIT 38.8 % (39.0-51.0); HEMO FLAGS DIFF FINAL; LYMPH % 12.3 % (9.0-44.0); LYMPHOCYTE # 1.3 TH/MM3 (1.0-4.8); MEAN CELL VOLUME 87.4 FL (80.0-100.0); MEAN CORPUSCULAR HEMOGLOBIN 29.4 PG (27.0-34.0); MEAN CORPUSCULAR HGB CONC 33.6 % (32.0-36.0); MONO % 7.8 % (0.0-8.0); NEUT % 78.1 % (16.0-70.0); PLATELET COUNT 201 TH/MM3 (150-450); RED BLOOD COUNT 4.44 MIL/MM3 (4.50-5.90); RED CELL DISTRIBUTION WIDTH 13.3 % (11.6-17.2); WHITE BLOOD COUNT 10.6 TH/MM3 (4.0-11.0)
[2016-08-23 08:04] LABS: BICARBONATE 25.5 MEQ/L (21.0-32.0); POTASSIUM 4.8 MEQ/L (3.5-5.1)
[2016-08-23] MEDS: SODIUM CHLOR 0.9% 1000 ML INJ 1,000 ML IV SCH (09:00)
[2016-08-23] MEDS ORDERED: MISCELLANEOUS NURSING INFORMATION ONE (09:00)
[2016-08-23] MEDS: THIAMINE HCL 100 MG TAB PO SCH (11:06)
[2016-08-23] MEDS: SODIUM CHLORIDE 0.9% FLUSH 10 ML FLUSH IV FLUSH SCH ×2 (11:06→21:00)
[2016-08-23] MEDS: MULTIVITAMINS/MINERALS THERAPEUTIC TAB PO SCH (11:07)
[2016-08-23] MEDS: FOLIC ACID 1 MG TAB PO SCH (11:07)
--- NOTE | 2016-08-23 11:24 | MB ---
cc: BENJAMIN ACUNA MD DATE OF CONSULTATION: 08/23/2016 REASON FOR CONSULTATION Altered mental status. HISTORY OF PRESENT ILLNESS Mr. Huber is a 76-year-old male who was brought into the [facility] Emergency Room for altered mental status with what the family felt like a face droop. The patient was admitted to the hospital two weeks ago for an episode of altered mental status and hyponatremia. As per medical records the family reported that for the past 3 weeks his mental status has been altered and it remains unchanged since the last admission. The patient states that he thinks it is because of elevated blood pressure he is in the hospital. He denies headache, blurred vision, double vision, lightheadedness, weakness of extremity or speech difficulty. His head CT scan was negative for an acute intracranial process. The sodium was 128, potassium 5.5 with compromised kidney function. REVIEW OF SYSTEMS A 12-point review of systems was negative except for what is stated in the HPI. PAST MEDICAL HISTORY 1. Diabetes mellitus. 2. Hypertension. 3. Cardiomegaly. 4. [id number]. 5. COPD. 6. Hypertriglyceridemia. 7. Encephalopathy. 8. Hyponatremia. PAST SURGICAL HISTORY 1. Cholecystectomy. 2. Colonoscopy with colonic polyp. MEDICATIONS 1. Lisinopril. 2. Trulicity. 3. Fenofibrate. 4. Amlodipine. 5. Pro-Air. 6. Atorvastatin. 7. Metoprolol. 8. Sertraline. ALLERGIES No known allergies. FAMILY HISTORY Noncontributory. SOCIAL HISTORY He is an ex-smoker, quit 20 years ago. Heavy drinker with no alcohol use in the past month. Denies illicit drug abuse. PHYSICAL EXAMINATION GENERAL: Awake, alert, overweight, in no apparent distress. HEENT: Atraumatic, normocephalic. Kkgp-[id number]. Intact vision. NECK: Trachea in the midline. Supple neck. CARDIOVASCULAR: Regular rate and rhythm. RESPIRATORY: Clear to auscultation. No wheezes. GASTROINTESTINAL: Soft, nontender. MUSCULOSKELETAL: No clubbing, no cyanosis, edema. Moves all extremities equally. NEUROLOGIC: Awake, alert, oriented to 2016, place [facility], not to time, could not tell what the date or month is and he knew the name of the president. Positive for released primitive reflexes, grasp reflex and blink reflex. He has flat affect. Cranial nerve examination is grossly unremarkable II-XII. No facial asymmetry. Intact facial sensation. Intact external ocular motility. Motor examination bilateral upper and lower extremity 5/5. There is bilateral flapping tremor on both hands. Mild rigidity upper extremities. Sgyzyx-ip-kauo is slow but within normal. Sensation is intact throughout. Reflexes 1+ bilateral symmetrical. PSYCHOLOGICAL: Flat affect. No hallucination. LABORATORY DATA - Sodium 127, potassium 4.8, BUN 17, creatinine 107, white blood cells 10.6, hemoglobin 13, MCV 87.4. DIAGNOSTIC IMAGING - Head CT scan with no acute intracranial abnormality. - Carotid ultrasound shows severe calcified plaque on the left, no evidence of hemodynamically significant carotid stenosis. - Brain MRI shows no evidence of acute infarction, diffuse atrophy with frontal lobe predominance and chronic small vessel white matter ischemic changes. DIAGNOSTIC IMPRESSION 1. Encephalopathy. 2. Hyponatremia. 3. History of diabetes mellitus. 4. History of hypertension. 5. History of coronary artery disease. 6. History of hypertriglyceridemia. - I have reviewed the MRI of the brain that showed mild to moderate cortical atrophy mainly at the bilateral frontal lobe with chronic white matter ischemic changes in the periventricular area bilaterally with mild dilatation of the ventricle. - Encephalopathy is likely secondary to metabolic/electrolyte derangement, severe hyponatremia which may be due to SIADH or cerebral wasting syndrome less likely due to water intoxication. No intracranial pathology to correlate with the encephalopathy. PLAN 1. Neuro checks q. four hourly. 2. Correction of hyponatremia at a slow rate to avoid central pontine myelinolysis. 3. Supportive medical treatment for electrolyte correction. 4. There is clinical and radiological evidence of cognitive decline/ dimension. This can be followed up as an outpatient. 5. DVT prophylaxis. 6. GI prophylaxis. 7. PT/OT recommendations are appreciated. 8. Check B12 and thyroid function test. Thank you for the opportunity to participate in the care of your patient. MD CHEN Giang/SKYLAR /10:06 AM /10:52 AM RODGER
--- NOTE | 2016-08-23 15:32 | HHI.PR ---
Subjective Remarks Forgetfulness, altered mental status Patient has been having episodes of forgetfulness, blacking out, and has been having intentional tremors. Previously strong alcoholic drinker. Also patient has been taking sertraline. No overnight events, no focal weakness Objective Vitals Vital Signs Date Time Temp Pulse Resp B/P Pulse Ox O2 Delivery O2 Flow Rate FiO2 08/23/16 11:26 97.7 97 20 136/95 95 08/23/16 07:39 97.7 74 18 145/70 98 08/23/16 03:27 97.6 74 20 140/67 98 08/23/16 02:15 97.1 76 18 143/86 95 08/22/16 19:00 75 18 123/83 96 Room Air 08/22/16 17:31 98.9 77 144/78 08/22/16 17:31 20 97 Room Air 08/22/16 15:37 98.9 86 18 152/71 96 Room Air I/O 08/22/16 08/22/16 08/22/16 08/23/16 08/23/16 08/23/16 07:00 15:00 23:00 07:00 15:00 23:00 Intake Total 400 ml Balance 400 ml Intake Oral 400 ml Result Diagram: 08/23/16 0654 08/23/16 0654 Imaging Last Impressions Head CT 08/22/16 0000 Signed Impressions: Service Date/Time: Monday, August 22, 2016 18:44 - CONCLUSION: Negative for an acute process.. Kyle Nova MD FACR Chest X-Ray 08/22/16 0000 Signed Impressions: Service Date/Time: Monday, August 22, 2016 19:32 - CONCLUSION: Mild compensated cardiomegaly Kyle Nova MD FACR Carotid Artery Ultrasound 08/22/16 0000 Signed Impressions: Service Date/Time: Monday, August 22, 2016 23:15 - CONCLUSION: Severe calcified plaque on the left on the grayscale images. No evidence of hemodynamically significant carotid stenosis by peak systolic velocity criteria. Oneil Velasco MD Brain MRI 08/22/16 0000 Signed Impressions: Service Date/Time: Monday, August 22, 2016 23:00 - CONCLUSION: 1. No evidence of acute infarct. 2. Diffuse atrophy with frontal lobe predominance and chronic small vessel white matter ischemic change. 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 Oneil Velasco MD Objective Remarks GENERAL: This is an obese elderly male patient, in no apparent distress. CARDIOVASCULAR: Regular rate and rhythm without murmurs, gallops, or rubs. RESPIRATORY: Clear to auscultation. Breath sounds equal bilaterally. No wheezes , rales, or rhonchi. GASTROINTESTINAL: Abdomen protuberant, soft, non-tender, nondistended. No guarding. MUSCULOSKELETAL: Extremities without clubbing, cyanosis, or edema. No calf tenderness. NEUROLOGICAL: Awake and alert, oriented to place and person. Affect flat. Motor and sensory grossly within normal limits. Normal speech. Positive for intentional tremor. No focal weakness. A/P Problem List: (1) Hyponatremia ICD Code: E87.1 Status: Acute (2) Encephalopathy ICD Code: G93.40 Status: Acute (3) Hyperkalemia ICD Code: E87.5 Status: Acute Assessment and Plan This is a 76-year-old male readmitted for altered mental status. The cause of AMS during prior admission was determined to be hyponatremia but family reports today that patient had facial droop prior to last admission on 08/08/16. Hyponatremia - thought to be related to excessive fluid intake during last admission - family reports fluid restriction continued at home - Initial sodium level is 128 on admission , now 127. Continue normal saline, nephrology consulted. Could be from sertraline. Encephalopathy subacute CVA vs Wernicke's encephalopathy vs hyponatremia - EEG - to check for seizure activity, pending results. - Brain MRI, carotid ultrasound are negative. Neurology following, likely toxic metabolic per neurology, follow-up TSH, vitamin D1 and vitamin B 12. Hyperkalemia-resolved History of alcohol abuse - Received one shot of B12 at PCP - Supplement with Folate, Thiamine, and MVI DVT prophylaxis - Lovenox 40 mg subq q24h . Discharge Planning Discharged once cleared by nephrology. Tree Yuan MD Aug 23, 2016 15:32
--- NOTE | 2016-08-23 19:28 | PD.CONS ---
HPI Service Nephrology Consult Requested By Dr. Brown Reason for Consult Hyponatremia Primary Care Physician SHAHNAZ Marshall History of Present Illness Patient is a 76-year-old male recently admitted the had hyponatremia and confusion. He came back with similar complaint sodium was 128 currently at 127 he is awake and alert Tell me his age he wants to go home denies any complains of leg weakness or passing out Review of Systems Constitutional: COMPLAINS OF: Fatigue Past Family Social History Allergies: Coded Allergies: No Known Allergies (Unverified , 08/22/16) Past Medical History History of confusion History of alcoholism Hyponatremia Hypertension Diabetes Hyperlipidemia COPD Past Surgical History Cholecystectomy Tonsillectomy Reported Medications Reported Meds & Active Scripts Active Gnp Vitamin B-1 (Thiamine HCl) 100 Mg Tab 100 Mg PO DAILY Lisinopril 20 Mg Tab 20 Mg PO Q12HR Reported Trulicity Inj (Dulaglutide Inj) 0.75 Mg/0.5 Ml Pen 0.75 Mg SQ Q7D Fenofibrate 145 Mg Tab 145 Mg PO DAILY Anoro Ellipta Inh (Umeclidinium/Vilanterol) 62.5-25 Mcg/Act Aero 1 Puff INH DAILY Amlodipine (Amlodipine Besylate) 5 Mg Tab 5 Mg PO DAILY Proair Hfa 8.5 GM Inh (Albuterol Sulfate) 90 Mcg/Act Aer 1-2 Puff INH Q4-6H PRN 108 mcg/actuation Atorvastatin (Atorvastatin Calcium) 40 Mg Tab 40 Mg PO HS Metoprolol Tartrate 25 Mg Tab 25 Mg PO DAILY Sertraline (Sertraline HCl) 50 Mg Tab 50 Mg PO DAILY Active Ordered Medications Current Medications Medications (Trade) Dose Ordered Sig/Stephenie Route Start Time Stop Time Status Last Admin (NS Flush) 2 ml UNSCH PRN IV FLUSH 08/22/16 19:45 (NS Flush) 2 ml BID IV FLUSH 08/22/16 21:00 08/22/16 21:00 Naloxone HCl 0.4 mg 0.4 mg UNSCH PRN IV 08/22/16 19:45 (NS 1000 ml Inj) 1,000 ml @ 84 mls/hr [id number] IV 08/22/16 21:00 08/23/16 09:00 (Lovenox Inj) 40 mg Q24H SQ 08/22/16 23:00 08/23/16 04:27 (Folate) 1 mg DAILY PO 08/23/16 09:00 08/28/16 08:59 08/23/16 11:07 (Vitamin B1) 100 mg DAILY PO 08/23/16 09:00 08/23/16 11:06 (Theragran M Tab) 1 tab DAILY PO 08/23/16 09:00 08/28/16 08:59 08/23/16 11:07 (Pneumovax-23 Inj) 25 mcg ONCE ONCE IM 08/24/16 10:00 08/24/16 10:01 Family History Noncontributory Social History Denies current smoking use or drink heavily. Stop Physical Exam Vital Signs Vital Signs Date Time Temp Pulse Resp B/P Pulse Ox O2 Delivery O2 Flow Rate FiO2 08/23/16 16:37 98.3 87 17 128/63 96 08/23/16 11:26 97.7 97 20 136/95 95 08/23/16 07:39 97.7 74 18 145/70 98 08/23/16 03:27 97.6 74 20 140/67 98 08/23/16 02:15 97.1 76 18 143/86 95 Physical Exam GENERAL: Well-nourished, well-developed patient. SKIN: Warm and dry. HEAD: Normocephalic. EYES: No scleral icterus. No injection or drainage. NECK: Supple, trachea midline. No JVD or lymphadenopathy. CARDIOVASCULAR: Regular rate and rhythm without murmurs, gallops, or rubs. RESPIRATORY: Breath sounds equal bilaterally. No accessory muscle use. GASTROINTESTINAL: Abdomen soft, non-tender, nondistended. EXTREMITIES: No cyanosis, or edema. NEUROLOGICAL: Awake, alert, and oriented x 3. Non-focal. Laboratory Laboratory Tests Test 08/23/16 08/23/16 08/23/16 06:54 13:10 18:15 White Blood Count 10.6 Red Blood Count 4.44 Hemoglobin 13.0 Hematocrit 38.8 Mean Corpuscular Volume 87.4 Mean Corpuscular Hemoglobin 29.4 Mean Corpuscular Hemoglobin 33.6 Concent Red Cell Distribution Width 13.3 Platelet Count 201 Mean Platelet Volume 7.9 Neutrophils (%) (Auto) 78.1 Lymphocytes (%) (Auto) 12.3 Monocytes (%) (Auto) 7.8 Eosinophils (%) (Auto) 1.3 Basophils (%) (Auto) 0.5 Neutrophils # (Auto) 8.3 Lymphocytes # (Auto) 1.3 Monocytes # (Auto) 0.8 Eosinophils # (Auto) 0.1 Basophils # (Auto) 0.1 CBC Comment DIFF FINAL Differential Comment Sodium Level 127 Potassium Level 4.8 Chloride Level 96 Carbon Dioxide Level 25.5 Anion Gap 6 Blood Urea Nitrogen 17 Creatinine 1.07 Estimat Glomerular Filtration 68 Rate Random Glucose 101 Calcium Level 8.7 Vitamin B12 Level 642 Thyroid Stimulating Hormone 1.400 3rd Gen Urine Random Sodium 98 Result Diagram: 08/23/16 0654 08/23/16 0654 Imaging Last Impressions Head CT 08/22/16 0000 Signed Impressions: Service Date/Time: Monday, August 22, 2016 18:44 - CONCLUSION: Negative for an acute process.. Kyle Nova MD FACR Chest X-Ray 08/22/16 0000 Signed Impressions: Service Date/Time: Monday, August 22, 2016 19:32 - CONCLUSION: Mild compensated cardiomegaly Kyle Nova MD FACR Carotid Artery Ultrasound 08/22/16 0000 Signed Impressions: Service Date/Time: Monday, August 22, 2016 23:15 - CONCLUSION: Severe calcified plaque on the left on the grayscale images. No evidence of hemodynamically significant carotid stenosis by peak systolic velocity criteria. Oneil Velasco MD Brain MRI 08/22/16 0000 Signed Impressions: Service Date/Time: Monday, August 22, 2016 23:00 - CONCLUSION: 1. No evidence of acute infarct. 2. Diffuse atrophy with frontal lobe predominance and chronic small vessel white matter ischemic change. 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 Oneil Velasco MD Assessment and Plan Problem List: (1) Hyponatremia Plan: Appears that he has water intoxication possible cerebrovascular wasting or SIADH However his last urine osmolality and specific gravity do not correlate with classical SIADH He can check serum cortisol level, uric acid and BNP, and cortisol level He could have a mixed disorder I will like to rule out adrenal insufficiency given hyperkalemia and low sodium His confusion is almost cleared although his sodium level is low I will recommend fluid restriction giving him salt tablets and stopping IV fluids (2) Diabetes mellitus Plan: Continue to monitor blood glucose (3) Hypertension Plan: Stable Problem Qualifiers (1) Diabetes mellitus: Kiah Gonzalez MD Aug 23, 2016 19:28
--- NOTE | 2016-08-23 19:36 | MG ---
cc: DIANA GRIFFIN M.D. Lab No: [id number] Date: 08/23/16 Age: 76 Sex: M Race: HISTORY MRI was no acute infarct. A 76-year-old man with COPD, encephalopathy, hyponatremia. MEDICATIONS 1. Folic acid. 2. Theragran. 3. Lovenox. DESCRIPTION OF RECORD A 10 Hz diffuse 60 microvolt posterior rhythm is seen. The recording overall is synchronous and symmetric. Photic stimulation was performed without significant posterior driving. No hemisphere asymmetries are noted. No epileptiform or seizure activity is seen. Hyperventilation is not performed. IMPRESSION A normal awake EEG. No evidence for a focal or diffuse abnormality. MD ALEKSANDR De La Torre/BJJamie /6:47 PM /7:34 PM
[2016-08-23] MEDS ORDERED: SODIUM CHLORIDE 1 GRAM TAB PO ONE (19:45)
[2016-08-24 00:15] VITALS: PULSE 92
[2016-08-24 07:46] LABS: URIC ACID 2.9 MG/DL (2.6-7.2)
[2016-08-24 08:22] VITALS: BP 130/63; PULSE 72; RESP 20; TEMP 95.9; O2SAT 95
[2016-08-24] MEDS: SODIUM CHLORIDE 0.9% FLUSH 10 ML FLUSH IV FLUSH SCH (09:00)
[2016-08-24] MEDS ORDERED: SODIUM CHLORIDE 1 GRAM TAB PO SCH (09:00)
[2016-08-24] MEDS: MULTIVITAMINS/MINERALS THERAPEUTIC TAB PO SCH (09:45)
[2016-08-24] MEDS: THIAMINE HCL 100 MG TAB PO SCH (09:45)
[2016-08-24] MEDS: FOLIC ACID 1 MG TAB PO SCH (09:45)
[2016-08-24] MEDS ORDERED: PNEUMOCOCCAL POLYVALENT INJ 25 MCG/0.5 ML SYR IM ONE (10:00)
[2016-08-24] MEDS ORDERED: SODI1TAB PO (10:05)
[2016-08-24 11:14] VITALS: PULSE 104
--- NOTE | 2016-08-24 12:32 | HHI.PR ---
Subjective Remarks Follow-up for altered mental status Mental status is a lot better, sodium is 130, on fluid restriction. Discussed extensively with the regarding plan. Objective Vitals Vital Signs Date Time Temp Pulse Resp B/P Pulse Ox O2 Delivery O2 Flow Rate FiO2 08/24/16 11:14 104 08/24/16 08:22 95.9 72 20 130/63 95 08/24/16 00:15 92 08/23/16 22:43 97.3 81 20 158/68 93 08/23/16 19:22 97.5 84 20 125/72 97 08/23/16 16:37 98.3 87 17 128/63 96 I/O 08/23/16 08/23/16 08/23/16 08/24/16 08/24/16 08/24/16 06:59 14:59 22:59 06:59 14:59 22:59 Intake Total 400 ml 568 ml Output Total 4050 ml Balance 400 ml 568 ml -4050 ml Intake Oral 400 ml 568 ml Output Urine Total 4050 ml # Voids 1 4 # Bowel Movements 1 Result Diagram: 08/23/16 0654 08/24/16 0655 Objective Remarks GENERAL: This is an obese elderly male patient, in no apparent distress. CARDIOVASCULAR: Regular rate and rhythm without murmurs, gallops, or rubs. RESPIRATORY: Clear to auscultation. Breath sounds equal bilaterally. No wheezes , rales, or rhonchi. GASTROINTESTINAL: Abdomen protuberant, soft, non-tender, nondistended. No guarding. MUSCULOSKELETAL: Extremities without clubbing, cyanosis, or edema. No calf tenderness. NEUROLOGICAL: Awake and alert, oriented to place, time and person. Affect flat. Motor and sensory grossly within normal limits. Normal speech. Positive for intentional tremor. No focal weakness. A/P Problem List: (1) Hyponatremia ICD Code: E87.1 Status: Acute (2) Encephalopathy ICD Code: G93.40 Status: Acute (3) Hyperkalemia ICD Code: E87.5 Status: Acute Assessment and Plan This is a 76-year-old male readmitted for altered mental status. The cause of AMS during prior admission was determined to be hyponatremia but family reports today that patient had facial droop prior to last admission on 08/08/16. Hyponatremia - thought to be related to excessive fluid intake during last admission - family reports fluid restriction continued at home - Initial sodium level is 128 on admission , now 130. Continue sertraline, discussed with nephrology, cortisol levels, uric acid and BNP are unremarkable. Likely secondary to SIADH. Continue sodium chloride tablets, follow-up with nephrology in 2 weeks. Fluid restriction. Encephalopathy subacute CVA vs Wernicke's encephalopathy vs hyponatremia - EEG negative, vitamin B 12, TSH within normal limits. - Brain MRI, carotid ultrasound are negative. Discussed with neurology, cleared for discharge, follow-up with neurology in 2 weeks. Patient is already on thiamine. Hyperkalemia-resolved History of alcohol abuse - Received one shot of B12 at PCP - Supplement with Folate, Thiamine, and MVI Discharge patient to home Condition on discharge: Improved Regular Diet as tolerated Ad Moraima activity Rx written: Sodium chloride tablets 3 times a day Follow-up with neurology and nephrology in 2 weeks. Primary care physician weekly. Check BMP weekly. . Discharge Planning Cleared for discharge today Tree Yuan MD Aug 24, 2016 12:32
--- NOTE | 2016-08-24 18:06 | ECHRPT ---
Indication: CVA/TIA CONCLUSIONS The left ventricular systolic function is aspekysf-kh-stzeaep reduced with an estimated ejection fra ction in the range of 40%. Normal left ventricular size. Wall thickness is normal. There is global left ventricular dysfunction. BP: 145 / 70 HR: 74 Rhythm: Sinus and , Atrial fibrillation MEASUREMENTS (Male / Female) Normal Values Technical Quality:Technically difficult study 2D ECHO LV Diastolic Diameter PLAX 5.3 cm 4.2 - 5.9 / 3.9 - 5.3 cm LV Systolic Diameter PLAX 4.6 cm IVS Diastolic Thickness 1.1 cm 0.6 - 1.0 / 0.6 - 0.9 cm LVPW Diastolic Thickness 0.7 cm 0.6 - 1.0 / 0.6 - 0.9 cm LV Relative Wall Thickness 0.3 LVOT Diameter 2.7 cm Aortic Root Diameter 3.3 cm LA Systolic Diameter LX 2.0 cm 3.0 - 4.0 / 2.7 - 3.8 cm M-MODE AV Cusp Separation MM 2.1 cm DOPPLER AV Peak Velocity 139.0 cm/s AV Peak Gradient 7.7 mmHg AV Mean Gradient 4.0 mmHg AV Velocity Time Integral 24.4 cm LVOT Peak Velocity 100.0 cm/s LVOT Peak Gradient 4.0 mmHg LVOT Velocity Time Integral 15.7 cm LVOT Cardiac Index 2749.6 cm/minm AV Area Cont Eq vti 3.7 cm AV Area Cont Eq pk 4.1 cm Mitral E Point Velocity 94.0 cm/s Mitral A Point Velocity 78.7 cm/s Mitral E to A Ratio 1.2 LV E' Lateral Velocity 7.4 cm/s Mitral E to LV E' Lateral Ratio 12.7 LV E' Septal Velocity 5.2 cm/s Mitral E to LV E' Septal Ratio 18.1 TR Peak Velocity 229.0 cm/s TR Peak Gradient 21.0 mmHg PV Peak Velocity 72.9 cm/s PV Peak Gradient 2.1 mmHg FINDINGS LEFT VENTRICLE The left ventricular systolic function is [id number] reduced with an estimated ejection fra ction in the range of 35-40%. Normal left ventricular size. Wall thickness is normal. There is global left ventricular dysfunction. This study was not technically sufficient to allow for evaluation of left ventricular diastolic func tion. Gregory Sinclair MD (Electronically Signed) Final Date:24 August 2016 18:05
== END 2016-08-24 13:14 | disposition home or self-care (01) ==
LOC: NEPC 15:35 → NEDA 19:37 → NEPGCP 08-23 02:55
PROVIDERS: ADMIT Hospitalist; ATTEND Hospitalist
DX: E87.1 Hypo-osmolality and hyponatremia (principal); G93.41 Metabolic encephalopathy; I65.23 Occlusion and stenosis of bilateral carotid arteries; E87.5 Hyperkalemia; R29.810 Facial weakness; R06.02 Shortness of breath; I49.8 Other specified cardiac arrhythmias; R94.31 Abnormal electrocardiogram [ECG] [EKG]; E87.79 Other fluid overload; R53.83 Other fatigue; I25.10 Atherosclerotic heart disease of native coronary artery without angina pectoris; I25.2 Old myocardial infarction; I11.9 Hypertensive heart disease without heart failure; I51.7 Cardiomegaly; E11.9 Type 2 diabetes mellitus without complications; J44.9 Chronic obstructive pulmonary disease, unspecified; E78.1 Pure hyperglyceridemia; E78.00 Pure hypercholesterolemia, unspecified; E78.5 Hyperlipidemia, unspecified; M47.892 Other spondylosis, cervical region; K21.9 Gastro-esophageal reflux disease without esophagitis; M54.9 Dorsalgia, unspecified; G89.29 Other chronic pain; H91.90 Unspecified hearing loss, unspecified ear; F10.20 Alcohol dependence, uncomplicated; E66.9 Obesity, unspecified; Z79.899 Other long term (current) drug therapy; Z87.891 Personal history of nicotine dependence
CPT/HCPCS: 70450; 70551; 71020; 76937; 80048; 80053; 81001; 82533; 82550; 82607; 83880; 83935; 84300; 84425; 84443; 84484; 84550; 85025; 93005; 93306; 93880; 95819; 96374; 96375; 96376; 97162; 99285; G0378; G8987; G8988; J1650; J7030